=== PATIENT | female | born 1980 | race Caucasian/White ===

== ENCOUNTER 2020-02-28 09:23 | Outpatient (REF) | payer OTHER, SELFPAY | END 2020-02-28 09:24 | disposition home or self-care (01) | LOC: HO.MDS 09:23 | PROVIDERS: PCP Internal Medicine; Visit Provider Internal Medicine Medical Oncology | DX: D50.9 Iron deficiency anemia, unspecified (principal) | CPT/HCPCS: 96365; J2916 ==

== ENCOUNTER 2020-03-03 10:45 | Outpatient (REF) | payer OTHER, SELFPAY | END 2020-03-03 10:46 | disposition home or self-care (01) | LOC: HO.MDS 10:45 | PROVIDERS: Visit Provider Internal Medicine Medical Oncology | DX: D50.9 Iron deficiency anemia, unspecified (principal) | CPT/HCPCS: 96365; J2916 ==

== ENCOUNTER 2020-03-19 10:11 | Outpatient (REF) | payer OTHER, SELFPAY ==
[2020-03-19 09:48] LABS: MANUAL DIFF FLAG NO
[2020-03-19 09:55] LABS: Basophils Percent Auto 0.3 % (0-2); Eosinophils Absolute Auto 0.1 X10*3/uL (0.0-0.4); Eosinophils Percent Auto 1.5 % (0-4); Hematocrit 34.6 % (37-47); Hemoglobin 10.7 g/dl (12.0-16.0); Imm Gran Abs Auto 0.03 X10*3/uL (0.00-0.03); Imm Gran Pct Auto 0.4 % (0.0-0.4); Lymphocytes Percent Auto 25.2 % (20-40); Mean Corpuscular HGB Conc 30.9 g/dl (31.0-35.0); Mean Corpuscular Hemoglobin 25.7 pg (27.0-33.0); Mean Platelet Volume 9.8 fL (9.4-12.3); Monocytes Absolute Auto 0.5 X10*3/uL (0.1-1.2); Monocytes Percent Auto 6.2 % (2-11); Neutrophils Absolute Auto 5.3 X10*3/uL (2.0-8.3); Neutrophils Percent Auto 66.4 % (45-73); Platelet Count 315 X10*3/uL (160-400); Red Blood Count 4.17 X10*6/uL (4.20-5.50); Red Cell Distribution Width 18.8 % (11.0-16.0); White Blood Count 7.9 X10*3/uL (4.8-10.8)
== END 2020-03-19 10:12 | disposition home or self-care (01) ==
LOC: HO.MDS 10:11
PROVIDERS: PCP Internal Medicine; Visit Provider Internal Medicine Medical Oncology
DX: D50.9 Iron deficiency anemia, unspecified (principal)
CPT/HCPCS: 36415; 85025; 96365; J2916

== ENCOUNTER 2020-03-23 | Outpatient (REF) | payer OTHER, SELFPAY | END 2020-03-23 00:01 | disposition home or self-care (01) | LOC: HO.LNP | PROVIDERS: Visit Provider Obstetrics & Gynecology | DX: N92.0 Excessive and frequent menstruation with regular cycle (principal) | CPT/HCPCS: 88305 ==

== ENCOUNTER → 2020-03-23 10:16 | Outpatient (BNVA) | payer OTHER, SELFPAY | PROVIDERS: PCP Internal Medicine; Referring Provider Internal Medicine; Visit Provider Obstetrics & Gynecology | DX: N92.0 Excessive and frequent menstruation with regular cycle (principal) | CPT/HCPCS: 58100; 81025 ==

== ENCOUNTER 2020-03-27 11:22 | Outpatient (REF) | payer OTHER, SELFPAY | END 2020-03-27 11:23 | disposition home or self-care (01) | LOC: HO.MDS 11:22 | PROVIDERS: Visit Provider Internal Medicine Medical Oncology | DX: D50.9 Iron deficiency anemia, unspecified (principal) | CPT/HCPCS: 96365; J2916 ==

== ENCOUNTER → 2020-04-01 15:39 | Outpatient (BNVA) | payer OTHER, SELFPAY | PROVIDERS: PCP Internal Medicine; Referring Provider Internal Medicine; Visit Provider Nurse Practitioner | DX: K59.04 Chronic idiopathic constipation (principal); D64.9 Anemia, unspecified; R10.13 Epigastric pain; K21.9 Gastro-esophageal reflux disease without esophagitis; Z79.899 Other long term (current) drug therapy | CPT/HCPCS: 99212 ==

== ENCOUNTER → 2020-04-13 11:41 | Outpatient (BNVA) | payer OTHER, SELFPAY | PROVIDERS: PCP Internal Medicine; Visit Provider Obstetrics & Gynecology | DX: Z76.89 Persons encountering health services in other specified circumstances (principal) ==

== ENCOUNTER → 2020-05-06 13:18 | Outpatient (BNVA) | payer OTHER, SELFPAY | PROVIDERS: PCP Internal Medicine; Referring Provider Internal Medicine; Visit Provider Nurse Practitioner | DX: Z76.89 Persons encountering health services in other specified circumstances (principal) ==

== ENCOUNTER → 2020-07-06 10:05 | Outpatient (BNVA) | payer OTHER, SELFPAY | PROVIDERS: PCP Internal Medicine; Visit Provider Nurse Practitioner ==

== ENCOUNTER → 2020-07-27 08:45 | Outpatient (BNVA) | payer OTHER, SELFPAY | PROVIDERS: PCP Internal Medicine; Visit Provider Nurse Practitioner ==

== ENCOUNTER → 2020-08-05 08:12 | Outpatient (REF) | payer OTHER, SELFPAY ==
--- NOTE | ~2020-08-05 | NM_ITS ---
EXAMINATION: RADIONUCLIDE SOLID FOOD GASTRIC EMPTYING 4-HOUR STUDY CLINICAL INFORMATION: Epigastric pain. COMPARISON: No previous gastric emptying study is available for comparison. TECHNIQUE: A standard meal consisting of 4 oz of Egg Beaters brand tagged with 1 mCi Tc-99m Sulfur Colloid, 8 oz water and 2 slices of toast with jelly was administered orally to the patient. Images were obtained using a dual head gamma camera in the anterior and posterior projections over of the stomach immediately post ingestion and at hourly intervals up to 3 hours post ingestion. Images were not obtained at 4 hours due to the minimal retention at 3 hours. The anterior and posterior counts at each time interval were averaged using the geometric mean and expressed as percentage of the immediate post ingestion counts. FINDINGS: There is good visualization of activity in the stomach immediately post ingestion. As the study progresses, there is good clearance of activity from the stomach and visualization of progressively increasing small bowel activity. By the end of the study, there is almost no retention noted in the stomach. Retention in the stomach at each time interval was: 1 hour 51% (normal 37%-90%) 2 hours 11% (normal 30%-60%) 3 hours 3% 4 hours (Not Obtained) (normal 0%-10%) NM/NM gastric emptying study IMPRESSION: Normal solid food gastric emptying study.
== END ==
LOC: HO.NUCMED 08:12
PROVIDERS: PCP Internal Medicine; Visit Provider Nurse Practitioner
DX: R10.13 Epigastric pain (principal); R68.81 Early satiety
CPT/HCPCS: 78264; A9541

== ENCOUNTER → 2020-08-06 08:19 | Outpatient (BNV) | payer OTHER, SELFPAY | PROVIDERS: PCP Internal Medicine; Visit Provider Internal Medicine Medical Oncology | DX: D50.9 Iron deficiency anemia, unspecified (principal) | CPT/HCPCS: 99213; 99214 ==

== ENCOUNTER 2020-08-06 09:22 | Outpatient (REF) | payer OTHER, SELFPAY ==
[2020-08-06 12:46] LABS: Iron 27 mcg/dL (30-160); Percent Iron Saturation 8 % (15-50); Total Iron Binding Capacity 320 mcg/dL (228-428); Unsaturated Iron Binding 293 ug/dL
== END 2020-08-06 09:23 | disposition home or self-care (01) ==
LOC: HO.LAB 09:22
PROVIDERS: PCP Internal Medicine; Visit Provider Internal Medicine
DX: D64.9 Anemia, unspecified (principal)
CPT/HCPCS: 36415; 83540

== ENCOUNTER → 2020-08-24 14:53 | Outpatient (BNVA) | payer OTHER, SELFPAY | PROVIDERS: PCP Internal Medicine; Visit Provider Nurse Practitioner ==

== ENCOUNTER → 2020-12-29 13:07 | Outpatient (BNVA) | payer OTHER, SELFPAY | PROVIDERS: PCP Internal Medicine; Visit Provider Nurse Practitioner ==

== ENCOUNTER 2021-02-23 07:50 | Outpatient (REF) | payer OTHER, SELFPAY ==
[2021-02-23 08:43] LABS: Basophils Percent Auto 0.3 % (0-2); Eosinophils Absolute Auto 0.1 X10*3/uL (0.0-0.4); Eosinophils Percent Auto 1.2 % (0-4); Hematocrit 34.6 % (37-47); Hemoglobin 10.5 g/dl (12.0-16.0); Imm Gran Abs Auto 0.04 X10*3/uL (0.00-0.03); Imm Gran Pct Auto 0.4 % (0.0-0.4); Lymphocytes Absolute Auto 2.4 X10*3/uL (1.2-4.9); Lymphocytes Percent Auto 25.6 % (20-40); MANUAL DIFF FLAG NO; Mean Corpuscular HGB Conc 30.3 g/dl (31.0-35.0); Mean Corpuscular Hemoglobin 24.5 pg (27.0-33.0); Mean Corpuscular Volume 80.8 fL (80-98); Monocytes Absolute Auto 0.6 X10*3/uL (0.1-1.2); Monocytes Percent Auto 6.5 % (2-11); Neutrophils Absolute Auto 6.3 X10*3/uL (2.0-8.3); Platelet Count 404 X10*3/uL (160-400); Red Blood Count 4.28 X10*6/uL (4.20-5.50); Red Cell Distribution Width 15.7 % (11.0-16.0); White Blood Count 9.5 X10*3/uL (4.8-10.8)
[2021-02-23 08:59] LABS: Alanine Aminotransferase 9 U/L (0-31); Albumin Level 4.2 g/dL (3.5-5.0); Alkaline Phosphatase 92 U/L (39-117); Anion Gap 13 (12-20); Aspartate Amino Transferase 14 U/L (5-31); Bilirubin Total 0.4 mg/dL (0.0-1.0); Blood Urea Nitrogen 13 mg/dL (9-16); Calcium 9.3 mg/dL (8.4-10.2); Carbon Dioxide 24 mmol/L (22-29); Chloride 107 mmol/L (96-108); Estimated Glomerular Filt Rate > 60; Glucose Random 90 mg/dL (60-115); Potassium 4.5 mmol/L (3.3-5.1); Sodium 139 mmol/L (135-145); Total Protein 7.8 g/dL (6.5-8.0)
[2021-02-23 09:18] LABS: Ferritin 9 ng/mL (10-122)
== END 2021-02-23 07:51 | disposition home or self-care (01) ==
LOC: HO.LAB 07:50
PROVIDERS: Internal Medicine Medical Oncology; PCP Internal Medicine; Visit Provider Internal Medicine
DX: D64.9 Anemia, unspecified (principal)
CPT/HCPCS: 36415; 80053; 82728; 85025

== ENCOUNTER 2021-03-02 07:38 | Outpatient (REF) | payer OTHER, SELFPAY | END 2021-03-02 07:39 | disposition home or self-care (01) | LOC: HO.MDS 07:38 | PROVIDERS: PCP Internal Medicine; Visit Provider Internal Medicine Medical Oncology | DX: D50.9 Iron deficiency anemia, unspecified (principal) | CPT/HCPCS: 96365; J2916 ==

== ENCOUNTER 2021-03-09 08:52 | Outpatient (REF) | payer OTHER, SELFPAY | END 2021-03-09 08:53 | disposition home or self-care (01) | LOC: HO.MDS 08:52 | PROVIDERS: Visit Provider Internal Medicine Medical Oncology | DX: D50.9 Iron deficiency anemia, unspecified (principal) | CPT/HCPCS: 96365; J2916 ==

== ENCOUNTER 2021-03-16 09:01 | Outpatient (REF) | payer OTHER, SELFPAY | END 2021-03-16 09:02 | disposition home or self-care (01) | LOC: HO.MDS 09:01 | PROVIDERS: Visit Provider Internal Medicine Medical Oncology | DX: D50.9 Iron deficiency anemia, unspecified (principal); G80.9 Cerebral palsy, unspecified | CPT/HCPCS: 96365; J2916 ==

== ENCOUNTER 2021-03-23 09:09 | Outpatient (REF) | payer OTHER, SELFPAY ==
[2021-03-23 09:44] LABS: MANUAL DIFF FLAG NO
[2021-03-23 09:46] LABS: Basophils Percent Auto 0.3 % (0-2); Eosinophils Absolute Auto 0.1 X10*3/uL (0.0-0.4); Eosinophils Percent Auto 1.3 % (0-4); Hematocrit 36.2 % (37-47); Imm Gran Abs Auto 0.02 X10*3/uL (0.00-0.03); Imm Gran Pct Auto 0.2 % (0.0-0.4); Lymphocytes Absolute Auto 2.2 X10*3/uL (1.2-4.9); Lymphocytes Percent Auto 25.4 % (20-40); Mean Corpuscular HGB Conc 30.4 g/dl (31.0-35.0); Mean Corpuscular Volume 82.3 fL (80-98); Mean Platelet Volume 10.7 fL (9.4-12.3); Monocytes Absolute Auto 0.5 X10*3/uL (0.1-1.2); Monocytes Percent Auto 6.1 % (2-11); Neutrophils Absolute Auto 5.8 X10*3/uL (2.0-8.3); Neutrophils Percent Auto 66.7 % (45-73); Platelet Count 342 X10*3/uL (160-400); White Blood Count 8.7 X10*3/uL (4.8-10.8)
== END 2021-03-23 09:10 | disposition home or self-care (01) ==
LOC: HO.MDS 09:09
PROVIDERS: Visit Provider Internal Medicine Medical Oncology
DX: D50.9 Iron deficiency anemia, unspecified (principal)
CPT/HCPCS: 36415; 85025; 96365; J2916

== ENCOUNTER → 2021-04-09 15:39 | Outpatient (BNVA) | payer OTHER, SELFPAY | PROVIDERS: PCP Internal Medicine; Referring Provider Internal Medicine; Visit Provider Nurse Practitioner ==

== ENCOUNTER 2021-05-25 10:27 | Outpatient (REF) | payer OTHER, SELFPAY ==
--- NOTE | ~2021-05-25 | US_ITS ---
EXAMINATION: US ABDOMEN COMPLETE CLINICAL INFORMATION: Epigastric pain. COMPARISON: Ultrasound abdomen 01/22/2008. TECHNIQUE: Real-time imaging of the abdominal viscera. FINDINGS: PANCREAS: Partially visualized within normal limits ABDOMINAL AORTA: The proximal, mid, and distal segments are normal in caliber. INFERIOR VENA CAVA: Visualized portions are normal. LIVER: The liver is normal in size. The liver contour is normal. No focal hepatic lesion. There is no intrahepatic biliary duct dilatation seen. GALLBLADDER: Gallstones are noted. Multiple. The gallbladder is physiologically distended. Multiple mobile gallstones are present. No evidence of gallbladder wall thickening or pericholecystic fluid. COMMON BILE DUCT: Normal in caliber measuring 0.2 cm in diameter. RIGHT KIDNEY: Normal. No hydronephrosis. No renal calculi or focal parenchymal lesions. The kidney measures 10.5 cm in maximum dimension. LEFT KIDNEY: Normal. No hydronephrosis. No renal calculi or focal parenchymal lesions. The kidney measures 9.3 cm in maximum dimension. SPLEEN: Normal. The spleen measures 10.8 cm in maximum dimension. FREE FLUID: None. US/US abdomen complete IMPRESSION: Cholelithiasis but no evidence for cholecystitis here. There is no free fluid.
== END 2021-05-25 10:28 | disposition home or self-care (01) ==
LOC: HO.US 10:27
PROVIDERS: PCP Internal Medicine; Visit Provider Nurse Practitioner
DX: R10.13 Epigastric pain (principal); K80.20 Calculus of gallbladder without cholecystitis without obstruction
CPT/HCPCS: 76700

== ENCOUNTER → 2021-06-03 08:12 | Outpatient (BNVA) | payer OTHER, SELFPAY | PROVIDERS: PCP Internal Medicine; Referring Provider Internal Medicine; Visit Provider Nurse Practitioner | DX: K80.20 Calculus of gallbladder without cholecystitis without obstruction (principal) | CPT/HCPCS: 99212 ==

== ENCOUNTER → 2021-06-24 08:44 | Outpatient (BNVA) | payer OTHER, SELFPAY | PROVIDERS: PCP Internal Medicine; Referring Provider Internal Medicine; Visit Provider Surgery | DX: K80.20 Calculus of gallbladder without cholecystitis without obstruction (principal); Z80.0 Family history of malignant neoplasm of digestive organs | CPT/HCPCS: 99202 ==

== ENCOUNTER → 2021-07-29 08:19 | Outpatient (BNVA) | payer OTHER, SELFPAY | PROVIDERS: PCP Internal Medicine; Visit Provider Nurse Practitioner | DX: K80.20 Calculus of gallbladder without cholecystitis without obstruction (principal); K59.04 Chronic idiopathic constipation; K21.9 Gastro-esophageal reflux disease without esophagitis; G80.2 Spastic hemiplegic cerebral palsy; D12.6 Benign neoplasm of colon, unspecified | CPT/HCPCS: 99212 ==

== ENCOUNTER 2021-10-11 09:02 | Outpatient (REF) | payer OTHER, SELFPAY ==
--- NOTE | ~2021-10-11 | MM_ITS ---
EXAMINATION: MM DIAGNOSTIC DIGITAL BREAST TOMOSYNTHESIS, BILATERAL CLINICAL INFORMATION: 41-year-old with chronic pain lateral right breast. No discharge or palpable fullness. No prior breast imaging. Family history breast cancer, maternal aunt. The lifetime risk of breast cancer based on the Tyrer-Cuzick Model is 14%. COMPARISON: None (current study represents initial baseline exam). TECHNIQUE: Digital breast tomosynthesis is performed in both the craniocaudal and mediolateral oblique views along with computer-aided detection (CAD). Synthesized 2D images are generated from the tomosynthesis. FINDINGS: There are scattered areas of fibroglandular density (ACR BI-RADS breast composition Category b). There is scattered benign-appearing nodularity in each breast with smooth partly obscured margins possibly cysts or fibroadenomatous. There is no architectural abnormality or abnormal calcifications. The axilla and skin contours are unremarkable. No skin thickening or coarsening of the Chu's ligaments. Left breast has 3 dominant nodules as follows: -Posterior upper outer quadrant macrolobulated 1.0 x 1.9 cm. -Mid upper outer quadrant, 1.0 x 1.4 cm. -Posterior 6:00 position 0.8 x 1.4 cm. Right breast has 2 dominant nodules as follows: -Central mid breast 0.6 x 1.1 cm. -Mid upper outer quadrant 0.4 x 0.6 cm. Bilateral targeted breast ultrasound is pending, scheduled on another day. MM/MM tomosynthesis diagnostic BI IMPRESSION: -Bilateral benign-appearing dominant nodularity. -No inflammatory changes. ASSESSMENT: BI-RADS 0: Incomplete - Need Additional Imaging Evaluation RECOMMENDATION: Targeted bilateral ultrasound for bilateral nodules and additional evaluation right pain. This patient's information was entered into a reminder system with a target due date for their next breast imaging.
== END 2021-10-11 09:03 | disposition home or self-care (01) ==
LOC: HO.MAMMO 09:02
PROVIDERS: PCP Internal Medicine; Visit Provider Internal Medicine
DX: N64.4 Mastodynia (principal)
CPT/HCPCS: 77062; 77066

== ENCOUNTER 2021-10-19 10:42 | Outpatient (REF) | payer OTHER, SELFPAY ==
--- NOTE | ~2021-10-19 | US_ITS ---
EXAMINATION: US DIAGNOSTIC ULTRASOUND BREAST, RIGHT US DIAGNOSTIC ULTRASOUND BREAST, LEFT CLINICAL INFORMATION: Recall from baseline mammography for bilateral benign-appearing nodularity. Family history breast cancer, maternal aunt. TC score 14%. COMPARISON: Baseline mammography 10/11/2021. TECHNIQUE: Ultrasound of each breast is performed using grayscale imaging and color Doppler without and with harmonics. Imaging is targeted to the areas of nodularity noted on recent imaging including left breast 12:00 through 6:00 position and right breast upper outer quadrant. Patient is scanned in wheelchair with semi recumbent positioning FINDINGS: Right: There is nodularity consistent with the baseline mammography. No architectural abnormality. There is an oval mildly hypoechoic circumscribed nodule 11:00 position 6 cm from nipple corresponding to the nodule central right breast measuring approximately 0.9 x 0.4 cm. No associated color flow. There are grouped benign-appearing microcysts upper outer right breast 15 cm from nipple composition in area just under 1 cm. Left: There is scattered nodularity corresponding to the findings on baseline mammography. No architectural abnormality. -2:00 position 12 cm from nipple grouped hypoechoic nodularity measuring approximately 1.2 x 0.9 cm. -2:00 position 7 cm from nipple circumscribed homogeneous mildly hypoechoic nodule measuring approximately 1.7 x 0.8 cm. -3:00 position 8 cm from nipple circumscribed nodule measuring approximately 1.3 x 0.7 cm. -5:00 position 9 cm from nipple circumscribed mildly hypoechoic nodule measuring 1.2 x 0.6 cm. Management: Results are discussed with the patient at time of visit. Multiple smooth bilateral nodularity are probably benign. Chronicity is unknown. The solid nodules are statistically most likely fibroadenomas. Management plan is for short interval six-month follow-up bilateral mammography with targeted ultrasound as warranted. US/US breast LT limited IMPRESSION: -Bilateral scattered smooth nodularity, most statistically likely fibroadenomas corresponding to baseline mammography. -No focal architectural abnormality. ASSESSMENT: BI-RADS 3: Probably Benign RECOMMENDATION: -Diagnostic bilateral mammography in 6 months. This patient's information was entered into a reminder system with a target due date for their next mammogram.
== END 2021-10-19 10:43 | disposition home or self-care (01) ==
LOC: HO.MAMMO 10:42
PROVIDERS: Visit Provider Internal Medicine
DX: N64.4 Mastodynia (principal)
CPT/HCPCS: 76642

== ENCOUNTER 2021-10-21 08:14 | Day surgery (SDC) | payer OTHER, SELFPAY ==
--- NOTE | 2021-10-20 10:48 | HO.ANESPROP2 ---
Documented by User: Coral Gutierrez NP 10/20/21 10:50 HPI - Anesthesia Eval Consult details Narrative: 41yo F for Upper Endoscopy and Colonoscopy Cerebral palsy, wheelchair bound, self cath PMFSH Active Problems Active Problems: All Active Problems (Updated 10/15/21 @ 11:42 by María Hoyos RN) GERD (gastroesophageal reflux disease) (Acute) Menorrhagia (Acute) Chronic idiopathic constipation (Acute) Anemia (Acute) Epigastric pain (Acute) Early satiety (Acute) Iron deficiency anemia (Acute) Tubular adenoma of colon (Acute) Gastritis (Acute) Nausea (Acute) Gallstones (Acute) Abnormal mammogram (Acute) Wheelchair bound (Acute) Family history of pancreatic cancer (Acute) Leg edema (Acute) Breast pain, right (Acute) Neurogenic bladder (Acute) Cerebral palsy (Acute) Past Medical History Medical History Breast pain, right Cerebral palsy COVID-19 vaccine series completed Family history of pancreatic cancer Leg edema Neurogenic bladder 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 urinary bladder Transverse myelitis Wheelchair bound Family History Family History Father HTN (hypertension) Diabetes type 2, controlled Mother Pancreatic cancer Surgical History Surgical History H/O major orthopedic surgery History of bilateral tubal ligation History of Hx of colonoscopy Hx of endoscopy Social History Social History Household Members: Children Household Members Other:: minor children Housing: Apartment Are you a primary personal care attendant to a significant other at home: Yes Do you presently have visiting nurse or other home services: Yes ([employer] services) Alcohol intake: never Patient Tobacco Use Status: Never used Tobacco e-Cigarette/Vaping Use: Never Used Second Hand Smoke Exposure: No Use of substances other than those prescribed or required for medical reasons: No Are you DNR?: No Advance Directives: Yes Advance Directives Information Provided: Yes Advance Directives on File: Yes Advance Directives Date on File: 02/28/20 Recently lost weight without trying: No Eating poorly because of decreased appetite: No Nutrition Risks: No Nutritional Risk Patient : No service: No Current occupational status: disabled Sexual orientation: Straight/Heterosexual Gender identity: Female Cognitive needs: No Hearing needs: No Vision needs: No Meds Allergies Allergy/AdvReac Type Severity Reaction Status Date / Time Influenza Virus Vaccines Allergy Severe Anaphylaxis Verified 10/15/21 11:43 latex [LATEX] Allergy Severe ANAPHYLAXIS Verified 10/13/21 09:46 Sulfa (Sulfonamide Allergy Severe Anaphylaxis Verified 10/15/21 11:43 Antibiotics) [SULFA (SULFONAMIDE ANTIBIOTICS)] Home Medications Medication Instructions Recorded Confirmed Last Taken Type oxybutynin chloride 10 mg 10 mg PO Q12H 03/23/20 10/15/21 Unknown History tablet,extended release 24 hr epinephrine 0.3 mg/0.3 mL 0.3 mg IM Q10M PRN 02/23/21 10/15/21 Unknown History injection, auto-injector Exam Exam Date and Time: October 20, 2021 1048 Height,Weight and Vital Signs: Height 5 ft 3 in Pertinent Lab Results Pertinent Lab Results: Laboratory Tests 10/13/21 10/13/21 10:00 10:00 WBC 9.3 Hgb 10.6 L Hct 35.0 L Plt Count 384 Sodium 137 Potassium 3.9 Chloride 108 Carbon Dioxide 21 L BUN 16 Creatinine 0.60 Assessment and Plan Assessment Anesthesia Assessment: Chart Reviewed Documented by User: Angelique Luu MD 10/21/21 08:45 [facility] Past Medical History Medical History Breast pain, right Cerebral palsy COVID-19 vaccine series completed Family history of pancreatic cancer Leg edema Neurogenic bladder 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 urinary bladder Transverse myelitis Wheelchair bound Family History Family History Father HTN (hypertension) Diabetes type 2, controlled Mother Pancreatic cancer Family history of problems with anesthesia: No Surgical History Surgical History H/O major orthopedic surgery History of bilateral tubal ligation History of Hx of colonoscopy Hx of endoscopy History of Problems with Anesthesia: No Social History Social History Household Members: Children Household Members Other:: minor children Housing: Apartment Are you a primary personal care attendant to a significant other at home: Yes Do you presently have visiting nurse or other home services: Yes ([employer] services) Alcohol intake: never Patient Tobacco Use Status: Never used Tobacco e-Cigarette/Vaping Use: Never Used Second Hand Smoke Exposure: No Use of substances other than those prescribed or required for medical reasons: No Are you DNR?: No Advance Directives: Yes Advance Directives Information Provided: Yes Advance Directives on File: Yes Advance Directives Date on File: 02/28/20 Recently lost weight without trying: No Eating poorly because of decreased appetite: No Nutrition Risks: No Nutritional Risk Patient : No service: No Current occupational status: disabled Sexual orientation: Straight/Heterosexual Gender identity: Female Cognitive needs: No Hearing needs: No Vision needs: No Meds Allergies Allergy/AdvReac Type Severity Reaction Status Date / Time Influenza Virus Vaccines Allergy Severe Anaphylaxis Verified 10/15/21 11:43 latex [LATEX] Allergy Severe ANAPHYLAXIS Verified 10/13/21 09:46 Sulfa (Sulfonamide Allergy Severe Anaphylaxis Verified 10/15/21 11:43 Antibiotics) [SULFA (SULFONAMIDE ANTIBIOTICS)] Home Medications Medication Instructions Recorded Confirmed Last Taken Type oxybutynin chloride 10 mg 10 mg PO Q12H 03/23/20 10/15/21 Unknown History tablet,extended release 24 hr epinephrine 0.3 mg/0.3 mL 0.3 mg IM Q10M PRN 02/23/21 10/15/21 Unknown History injection, auto-injector Exam Height,Weight and Vital Signs: Height 5 ft 3 in Weight 58.967 kg Vital Signs Temp Pulse Resp BP Pulse Ox 10/21/21 08:17 97.5 F 106 H 18 136/71 97 Airway Mallampati Class: II TM Dist: >3cm Neck ROM: Full Loose/Missing/Broken Teeth: No Heart: RRR Lungs: CTAB Assessment and Plan Assessment Anesthesia Assessment: Anesthesia Plan Discussed Final Anesthetic Review Family History of Problems with Anesthesia: No History of Problems with Anesthesia: No NPO: Yes ASA Class: III Final Preanesthetic Review: No Changes in Pt Med Stat, Meds/Allgs Chart Reviewed, Consent Obtained/Reviewed and Anes Risks/Benef Reviewed Patient Risk: Intermediate Procedure Risk: Low Assessment/Block/Sedation in SS: Assess/Block/Sedation-SS Anesthetic Plan Anesthetic Plan: MAC: Disposition: Standard PACU
--- NOTE | 2021-10-21 07:03 | P.HPSUR_ITS ---
Pre-Procedural Eval Section A Date of Service: 10/21/21 Section B Chief Complaint: abdominal pain, anemia Relevant Family History (Specify if Yes): No Relevant Social History: None Present Medications: see Short Stay Collaborative assessment Medical History: Significant History (Breast pain, right Cerebral palsy COVID-19 vaccine series completed Family history of pancreatic cancer Leg edema Neurogenic bladder Self-catheterizes urinary bladder Transverse myelitis Wheelchair bound) History of Previous Operations: Relevant previous surgery/procedure and date(s) (H/O major orthopedic surgery History of bilateral tubal ligation History of C- section Hx of colonoscopy Hx of endoscopy) Allergies: Allergies Allergy/AdvReac Type Severity Reaction Status Date / Time Influenza Virus Vaccines Allergy Severe Anaphylaxis Verified 10/15/21 11:43 latex [LATEX] Allergy Severe ANAPHYLAXIS Verified 10/13/21 09:46 Sulfa (Sulfonamide Allergy Severe Anaphylaxis Verified 10/15/21 11:43 Antibiotics) [SULFA (SULFONAMIDE ANTIBIOTICS)] Review of Systems Sugical H&P ROS: Negative: Constitution, Cardiovascular, Respiratory, Neurological, Psychiatric, Hem-Onc, Allergic/Immunologic, Gastrointestinal, Genitourinary, Musculoskeletal, Integumentary, Endocrine and Eyes/Ears/Nose/Throat Exam Surgical H&P Exam: Normal: HEENT, Normal: Heart, Normal: Lungs, Normal: Extremities, Normal: Abdomen and Normal: Skin and Significant Findings: Neurological (wheelchair bound) Plan Diagnosis/Plan: Unchanged I have reviewed the history and physical and performed a pertinent physical examination on my patient. No changes have occurred unless specified.
[2021-10-21 08:17] VITALS: BP 136/71; PULSE 106; RESP 18; TEMP 36.4; O2SAT 97; BMI 23.0
[2021-10-21] MEDS: Lactated Ringers 1,000 ML 100 ML IVCONT (08:51)
--- NOTE | 2021-10-21 09:24 | PM.OP ---
Brief Operative Note Date of Service: 10/21/21 Pre-op diagnosis: abdominal pain, anemia Post-op diagnosis: same Procedure: see op note Surgeon: Trinh Saunders MD Anesthesia: MAC Was an Workforce Planner used for this Procedure?: No Estimated blood loss (mL): 0 Condition: stable Disposition: PACU
--- NOTE | 2021-10-21 09:25 | P.OP_ITS ---
Operative Note Operative Note Date of Service: 10/21/21 Narrative: Operative Information Procedure Description: EGD, Colonoscopy Indication: abdominal pain, anemia Anesthesia: MAC FLEXIBLE TRANSORAL UPPER GASTROINTESTINAL ENDOSCOPY AND COLONOSCOPY PROCEDURE NOTE UPPER ENDOSCOPY Consent: Indications for the procedure and potential complications of bleeding, perforation, reaction to medications and missed diagnosis were discussed with the patient and informed consent was obtained. Instrument: Olympus GIF H 190 J mid size upper endoscope Monitoring: Vital signs and clinical assessment, continuous EKG monitoring, Pulse oximetry, Carbon Dioxide monitoring and blood pressure monitoring were done throughout the procedure. Procedure: The patient was placed in the left lateral decubitis position and pre-procedure medications were administered and a bite block was placed. The endoscope was inserted into the mouth and advanced under direct vision to the third part of duodenum. A careful inspection was made as the upper endoscope was withdrawn including a retroflexed examination of the proximal stomach; Findings and interventions are described below. Findings: Larynx:normal Esophagus: GE junction at 37 cm, diaphragm hiatus at 37 cm, streaky erosions, edema, and inflammation consistent with LA grade C erosive esophagitis, bx taken --schatzki ring noted Stomach: Normal mucosa. Biopsies were obtained. Grade 2 flap valve on retroflexed examination of the cardia. Duodenum: Bulbar duodenitis, bx taken Intervention: Biopsies as noted above COLONOSCOPY Instrument: Olympus variable stiffness pediatric scope 190L Colonoscopy Monitoring: Vital signs and clinical assessment, continuous EKG monitoring, Pulse oximetry, Carbon Dioxide monitoring and blood pressure monitoring were done throughout the procedure. Colon withdrawal time was 12 minutes. Procedure: The patient was placed in the left lateral decubitis position and pre-procedure medications were administered. After a digital rectal examination of the ano-rectum, the video colonoscope was inserted into the rectum and advanced through the colon to the cecum/TI. The colonoscope was slowly withdrawn in a retrograde panoramic fashion and the colon mucosa was carefully examined including a retroflexed view of the rectum. Findings and interventions are described below. Procedure Difficulty:easy Findings: Terminal Ileum-normal, bx taken Random colon bx taken Cecum:normal Ascending Colon: normal, few small diverticula noted Transverse Colon -normal Descending Colon:normal Sigmoid Colon: moderate diverticulosis with variable sized tics Rectum: Retroflexion with small internal hemorrhoids, grade I, few erosions noted in proximal rectum bx taken, x 1 sessile polyp lesion 8 mm removed with cold snare Anorectum - normal Colon preparation: Winkelman Bowel Preparation Scale Right colon; 3 Transverse colon: 2 Left colon; 3 (0 = Unprepared colon segment with mucosa not seen due to solid stool that cannot be cleared. 1 = Portion of mucosa of the colon segment seen, but other areas of the colon segment not well seen due to staining, residual stool and/or opaque liquid. 2 = Minor amount of residual staining, small fragments of stool and/or opaque liquid, but mucosa of colon segment seen well. 3 = Entire mucosa of colon segment seen well with no residual staining, small fragments of stool or opaque liquid) Impression and Post Procedure Diagnosis: Endoscopy Findings: erosive esophagitis (maybe causing anemia to some extent) schatzki ring duodenitis Colonoscopy Findings: polyp internal hemorrhoids diverticular disease Plan: Await Pathology results Repeat Colonoscopy in 5-7 years if adenomatus polyp, 10 yrs if hyperplastic or earlier if clinically indicated High fiber diet leaflet avoid straining at stool, epsom salts and sitz bath, anusol supps or cream check nsaid history, naprosyn listed on chart also compliance with PPI, may need pepcid at night or carafate if h pylori pos then treat reflux precautions Above findings were reviewed with the patient and relevant handouts were provided if indicated.
[2021-10-21 10:17] VITALS: BP 120/76; PULSE 97; RESP 16; TEMP 36.4; O2SAT 98
[2021-10-21 10:32] VITALS: BP 133/77; PULSE 95; RESP 16; TEMP 36.4; O2SAT 100
== END 2021-10-21 10:57 | disposition home or self-care (01) ==
PROVIDERS: PCP Internal Medicine; Visit Provider Internal Medicine Gastroenterology
PROC: (CPT 45385; principal; 2021-10-21 09:20)
DX: R10.9 Unspecified abdominal pain (principal); D64.9 Anemia, unspecified; Z86.010 Personal history of colon polyps; K62.1 Rectal polyp; K57.30 Diverticulosis of large intestine without perforation or abscess without bleeding; K64.0 First degree hemorrhoids; K59.04 Chronic idiopathic constipation; K21.9 Gastro-esophageal reflux disease without esophagitis; K22.2 Esophageal obstruction; K80.20 Calculus of gallbladder without cholecystitis without obstruction; K20.80 Other esophagitis without bleeding; K29.80 Duodenitis without bleeding; K44.9 Diaphragmatic hernia without obstruction or gangrene; N31.9 Neuromuscular dysfunction of bladder, unspecified; Z80.0 Family history of malignant neoplasm of digestive organs; R60.0 Localized edema; G80.2 Spastic hemiplegic cerebral palsy; G37.3 Acute transverse myelitis in demyelinating disease of central nervous system; Z79.899 Other long term (current) drug therapy; Z88.2 Allergy status to sulfonamides; Z91.040 Latex allergy status
CPT/HCPCS: 45385; 45380; 43239; 88305; 88312; 88342; J2250

== ENCOUNTER 2021-10-22 09:19 | Outpatient (REF) | payer OTHER, SELFPAY | END 2021-10-22 09:20 | disposition home or self-care (01) | LOC: HO.MDS 09:19 | PROVIDERS: Visit Provider Internal Medicine Medical Oncology | DX: D50.9 Iron deficiency anemia, unspecified (principal) | CPT/HCPCS: 96365; J2916 ==

== ENCOUNTER 2021-10-29 11:46 | Outpatient (REF) | payer OTHER, SELFPAY | END 2021-10-29 11:47 | disposition home or self-care (01) | LOC: HO.MDS 11:46 | PROVIDERS: Visit Provider Internal Medicine Medical Oncology | DX: D50.9 Iron deficiency anemia, unspecified (principal) | CPT/HCPCS: 96365; J2916 ==

== ENCOUNTER 2021-11-04 12:16 | Outpatient (REF) | payer OTHER, SELFPAY | END 2021-11-04 12:17 | disposition home or self-care (01) | LOC: HO.MDS 12:16 | PROVIDERS: Visit Provider Internal Medicine Medical Oncology | DX: D50.9 Iron deficiency anemia, unspecified (principal); G80.9 Cerebral palsy, unspecified; K80.20 Calculus of gallbladder without cholecystitis without obstruction; K21.9 Gastro-esophageal reflux disease without esophagitis; K59.04 Chronic idiopathic constipation; D12.6 Benign neoplasm of colon, unspecified; Z88.2 Allergy status to sulfonamides; Z88.7 Allergy status to serum and vaccine; Z91.040 Latex allergy status; Z79.899 Other long term (current) drug therapy | CPT/HCPCS: 96365; 99212; J2916 ==

== ENCOUNTER 2021-11-17 11:00 | Outpatient (REF) | payer OTHER, SELFPAY | END 2021-11-17 11:01 | disposition home or self-care (01) | LOC: HO.MDS 11:00 | PROVIDERS: Visit Provider Internal Medicine Medical Oncology | DX: D50.9 Iron deficiency anemia, unspecified (principal); K80.20 Calculus of gallbladder without cholecystitis without obstruction; G80.8 Other cerebral palsy; G37.3 Acute transverse myelitis in demyelinating disease of central nervous system; Z91.040 Latex allergy status; Z80.0 Family history of malignant neoplasm of digestive organs; Z88.2 Allergy status to sulfonamides; Z88.7 Allergy status to serum and vaccine; Z99.3 Dependence on wheelchair; Z79.899 Other long term (current) drug therapy | CPT/HCPCS: 96365; 99212; J2916 ==

== ENCOUNTER → 2021-12-29 08:59 | Outpatient (BNVA) | payer OTHER, SELFPAY | PROVIDERS: PCP Internal Medicine; Referring Provider Internal Medicine; Visit Provider Surgery | DX: Z71.2 Person consulting for explanation of examination or test findings (principal); Z80.0 Family history of malignant neoplasm of digestive organs | CPT/HCPCS: 99212 ==

== ENCOUNTER → 2021-12-30 11:59 | Outpatient (BNVA) | payer OTHER, SELFPAY | PROVIDERS: PCP Internal Medicine; Visit Provider Nurse Practitioner | DX: K30 Functional dyspepsia (principal); K22.10 Ulcer of esophagus without bleeding; K21.9 Gastro-esophageal reflux disease without esophagitis; K59.04 Chronic idiopathic constipation | CPT/HCPCS: 99212 ==

== ENCOUNTER → 2022-01-27 08:43 | Outpatient (BNVA) | payer OTHER, SELFPAY | PROVIDERS: PCP Internal Medicine; Visit Provider Nurse Practitioner | DX: K22.10 Ulcer of esophagus without bleeding (principal); K21.9 Gastro-esophageal reflux disease without esophagitis; K59.04 Chronic idiopathic constipation; K30 Functional dyspepsia; G80.8 Other cerebral palsy; Z79.899 Other long term (current) drug therapy | CPT/HCPCS: 99212 ==

== ENCOUNTER → 2022-04-20 10:38 | Outpatient (BNVA) | payer OTHER, SELFPAY | PROVIDERS: PCP Internal Medicine; Referring Provider Internal Medicine; Visit Provider Nurse Practitioner | DX: K21.9 Gastro-esophageal reflux disease without esophagitis (principal); K22.10 Ulcer of esophagus without bleeding; K30 Functional dyspepsia; K59.04 Chronic idiopathic constipation; Z79.899 Other long term (current) drug therapy | CPT/HCPCS: 99212 ==

== ENCOUNTER → 2022-06-16 10:18 | Outpatient (BNVA) | payer OTHER, SELFPAY | PROVIDERS: PCP Internal Medicine; Visit Provider Surgery | DX: K80.20 Calculus of gallbladder without cholecystitis without obstruction (principal); G80.2 Spastic hemiplegic cerebral palsy; Z99.3 Dependence on wheelchair | CPT/HCPCS: 99212 ==

== ENCOUNTER → 2022-06-23 09:29 | Outpatient (BNVA) | payer OTHER, SELFPAY | PROVIDERS: PCP Internal Medicine; Referring Provider Internal Medicine; Visit Provider Nurse Practitioner | DX: K80.20 Calculus of gallbladder without cholecystitis without obstruction (principal); K59.04 Chronic idiopathic constipation; K21.9 Gastro-esophageal reflux disease without esophagitis; K22.10 Ulcer of esophagus without bleeding; K30 Functional dyspepsia | CPT/HCPCS: 99212 ==

== ENCOUNTER 2022-06-27 12:13 | Outpatient (REF) | payer OTHER, SELFPAY | END 2022-06-27 12:14 | disposition home or self-care (01) | LOC: HO.MDS 12:13 | PROVIDERS: Visit Provider Internal Medicine Medical Oncology | DX: D50.9 Iron deficiency anemia, unspecified (principal) | CPT/HCPCS: 96365; J1756 ==

== ENCOUNTER 2022-06-28 08:25 | Outpatient (REF) | payer OTHER, SELFPAY ==
--- NOTE | ~2022-06-28 | CT_ITS ---
EXAMINATION: CT ABDOMEN AND PELVIS WITHOUT CONTRAST CLINICAL INFORMATION: Calculus of gallbladder. COMPARISON: Ultrasound abdomen 05/25/2021. TECHNIQUE: Multidetector volumetric imaging was performed from the superior aspect of the liver through the pubic symphysis. Sagittal and coronal reformatted images were obtained on the technologist's workstation. This CT examination was performed using dose optimization techniques as appropriate, variously including the following: *Automated exposure control *Adjustment of mA and/or kV according to patient size (this includes techniques or standardized protocols for targeted exams where dose is matched to indication/reason for exam; i.e. extremities or head) *Use of iterative reconstruction technique DLP: 462 mGy-cm FINDINGS: LUNG BASES: The visualized lung bases are unremarkable. LIVER, GALLBLADDER, AND BILIARY TREE: The liver is normal in size, shape, and attenuation. No focal hepatic lesion or biliary ductal dilatation is present. The gallbladder is unremarkable with no evidence of radiopaque gallstones, gallbladder wall thickening, or obvious pericholecystic inflammatory changes. PANCREAS: Unremarkable. SPLEEN: Unremarkable. ADRENAL GLANDS: Unremarkable. KIDNEYS AND URETERS: The kidneys are normal in size, shape, and attenuation. No hydronephrosis, hydroureter, or calculi are seen. No perinephric stranding. BLADDER: Unremarkable. GASTROINTESTINAL TRACT: There is scattered stool, diverticula and gas seen throughout the colon without distention. The small bowel loops are normal caliber. Appendix is normal caliber. No free air or free fluid is seen. ABDOMINAL WALL: No significant hernia is appreciated. LYMPH NODES: Normal. VASCULAR: Unremarkable. PELVIC VISCERA: Unremarkable. OSSEOUS STRUCTURES: There is a right hip nail and screws from an old, healed right femoral neck fracture. In addition, there is reconstruction of the bilateral pelvic bones and acetabula with screws and nails. There is moderate rotolevoscoliosis of the lumbar spine. No aggressive lytic or sclerotic process is seen. CT/CT abdomen pelvis wo IV con IMPRESSION: 1. No acute intra-abdominal process is seen. 2. No radiopaque urolith or hydroureteronephrosis. No radiopaque gallstone. 3. Scattered colonic diverticulosis without diverticulitis. Fleischner guidelines were followed.
== END 2022-06-28 08:26 | disposition home or self-care (01) ==
LOC: HO.CT 08:25
PROVIDERS: PCP Internal Medicine; Visit Provider Surgery
DX: K80.20 Calculus of gallbladder without cholecystitis without obstruction (principal)
CPT/HCPCS: 74176

== ENCOUNTER 2022-07-04 08:59 | Outpatient (REF) | payer OTHER, SELFPAY | END 2022-07-04 09:00 | disposition home or self-care (01) | LOC: HO.MDS 08:59 | PROVIDERS: Visit Provider Internal Medicine Medical Oncology | DX: D50.9 Iron deficiency anemia, unspecified (principal) | CPT/HCPCS: 96365; J1756 ==

== ENCOUNTER 2022-07-11 09:15 | Outpatient (REF) | payer OTHER, SELFPAY | END 2022-07-11 09:16 | disposition home or self-care (01) | LOC: HO.MDS 09:15 | PROVIDERS: Visit Provider Internal Medicine Medical Oncology | DX: D50.9 Iron deficiency anemia, unspecified (principal) | CPT/HCPCS: 96365; J1756 ==

== ENCOUNTER → 2022-08-18 09:02 | Outpatient (BNVA) | payer OTHER, SELFPAY | PROVIDERS: PCP Internal Medicine; Visit Provider Surgery | DX: R10.11 Right upper quadrant pain (principal); Z87.19 Personal history of other diseases of the digestive system; Z99.3 Dependence on wheelchair | CPT/HCPCS: 99212 ==

== ENCOUNTER 2022-10-04 09:00 | Outpatient (REF) | payer OTHER, SELFPAY ==
--- NOTE | ~2022-10-04 | US_ITS ---
EXAMINATION: US ABDOMEN LIMITED CLINICAL INFORMATION: Personal history of other diseases of the digestive system. Patient had ultrasound in 2020 identifying gallstones but did not opt for surgery. Repeat ultrasound to check status of gallstones. COMPARISON: CT abdomen and pelvis without contrast 06/28/2022. Ultrasound abdomen complete 05/25/2021. TECHNIQUE: Real-time imaging of the right upper quadrant abdominal viscera. FINDINGS: PANCREAS: Not well visualized due to bowel gas. LIVER: Normal. The liver is normal in size. The liver contour is normal. Parenchymal echogenicity is normal. No focal hepatic lesion. There is no intrahepatic biliary duct dilatation seen. GALLBLADDER: The gallbladder is physiologically distended. Multiple mobile gallstones are present. No evidence of gallbladder wall thickening or pericholecystic fluid. COMMON BILE DUCT: Normal in caliber measuring 0.4 cm in diameter. RIGHT KIDNEY: Normal. No hydronephrosis. No renal calculi or focal parenchymal lesions. The kidney measures 9.4 cm in maximum dimension. FREE FLUID: None. US/US abdomen limited IMPRESSION: Gallstones.
== END 2022-10-04 09:01 | disposition home or self-care (01) ==
LOC: HO.US 09:00
PROVIDERS: PCP Internal Medicine; Visit Provider Surgery
DX: Z87.19 Personal history of other diseases of the digestive system (principal)
CPT/HCPCS: 76705

== ENCOUNTER → 2022-10-12 09:48 | Outpatient (BNVA) | payer OTHER, SELFPAY | PROVIDERS: PCP Internal Medicine; Referring Provider Internal Medicine; Visit Provider Surgery | DX: K80.20 Calculus of gallbladder without cholecystitis without obstruction (principal) | CPT/HCPCS: 99212 ==

== ENCOUNTER → 2022-11-30 09:46 | Outpatient (BNVA) | payer OTHER, SELFPAY | PROVIDERS: PCP Internal Medicine; Visit Provider Nurse Practitioner | DX: K80.20 Calculus of gallbladder without cholecystitis without obstruction (principal); K30 Functional dyspepsia; K21.9 Gastro-esophageal reflux disease without esophagitis; K59.04 Chronic idiopathic constipation; G80.8 Other cerebral palsy; Z99.3 Dependence on wheelchair | CPT/HCPCS: 99212 ==

== ENCOUNTER 2023-03-14 08:16 | Outpatient (AMB) | payer OTHER, SELFPAY ==
--- NOTE | 2023-03-14 08:36 | A.OFFPC_ITS ---
Vital Signs 03/14/23 08:38 Height 5 ft 3 in Weight 141 lb BMI 25.0 BP 118/82 Blood Pressure Location Lt brachial Position Sitting Intake Visit Reasons: Annual Exam Intake Note: Patient here for a physical exam Automotive Drivability Technician Required: No Accompanied by: Self / Same As Patient Allergies Influenza Virus Vaccines Allergy (Severe, Verified 03/14/23 08:51) Anaphylaxis latex [LATEX] Allergy (Severe, Verified 03/14/23 08:51) ANAPHYLAXIS Sulfa (Sulfonamide Antibiotics) [SULFA (SULFONAMIDE ANTIBIOTICS)] Allergy (Severe, Verified 03/14/23 08:51) Anaphylaxis Medication List - Last Reconciled 03/14/23 by Micheline Carmichael MD baclofen 10 mg PO Q8H PRN bisacodyl 10 mg (2 x 5 mg) PO BEDTIME commode (bedside commode) As directed [compression stockings As directed] epinephrine 0.3 mg (0.3 mL) IM Q10M PRN 30 days famotidine (Pepcid) 40 mg PO BEDTIME PRN ferrous sulfate 325 mg PO TID lactulose 105 mL PO BEDTIME PRN linaclotide (Linzess) 290 mcg PO QAM qsrdck-bwyyvsan-noufdge 24,000-76,000 -120,000 unit (Creon) 1 cap PO QID metoclopramide HCl (Reglan) 10 mg PO QIDACHS naproxen 500 mg PO Q12H PRN oxybutynin chloride ER 10 mg PO Q12H rabeprazole (AcipHex) 20 mg PO BID [shower chair As directed] simethicone (Anti-Gas Ultra Strength) 180 mg PO TID Tobacco use date assessed: 06/27/22 Dental Screening Dental Screen Date: 03/14/23 Did you have a dental visit in the last 12 months?: Yes Did you have a dental problem in the last 6 months where you did not have access to dental care?: No Was dental information given to patient?: Patient has dentist HPI HPI Comments History of Present Illness Details This is a 42-year-old female with paraplegic is cerebral palsy that comes for her physical exam. She is wheelchair-bound due to cerebral palsy. No chest pain or shortness of breath. Mammogram and Pap smear up-to-date. Had colonoscopy last year due to anemia. [facility] Medical History (Updated 03/14/23 @ 09:04 by Micheline Carmichael MD) History of gallstones Paraplegic cerebral palsy Paraplegic cerebral palsy COVID-19 vaccine series completed Wheelchair bound Family history of pancreatic cancer Leg edema Breast pain, right Neurogenic bladder Cerebral palsy Transverse myelitis Self-catheterizes urinary bladder Surgical History H/O major orthopedic surgery Hx of endoscopy Hx of colonoscopy History of bilateral tubal ligation History of Family History Father HTN (hypertension) Diabetes type 2, controlled Mother Pancreatic cancer Social History Household Members: Children Household Members Other:: minor children Housing: Apartment Are you 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 care 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 health aides 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 to a significant other at home: Yes Do you presently have visiting nurse or other home services: Yes (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 Aneesh Randle, Elina Olmos, Andrew Rizzo and colleagues, with an educational carmen from [employer]. Review of Systems Const All systems reviewed & are unremarkable except as noted in HPI and below Eyes Reports no additional complaints, Denies change in vision and Denies other visual disturbances Card Denies chest pain at rest, Denies chest pain with activity, Denies edema, Denies irregular heart rhythm, Denies claudication, Denies dyspnea, Denies dyspnea on exertion, Denies orthopnea, Denies paroxysmal nocturnal dyspnea and Denies slow heart rate Resp Denies cough, Denies dyspnea and Denies dyspnea on exertion GI Denies abdominal pain, Denies change in bowel habits, Denies excessive flatus, Denies nausea and Denies vomiting Denies urinary incontinence, Denies urinary hesitancy and Denies urinary urgency Musc Denies atrophy, Denies deformity and Denies limited range of motion Skin/Breast Denies bleeding lesions, Denies changing lesions and Denies rash Physical exam (Primary Care) Vital Signs: Last Vital Signs BP 118/82 03/14/23 08:38 BMI result Body Mass Index 25.0 Tobacco/Smoking Status: Tobacco use Status Tobacco use date assessed 06/27/22 03/14/23 08:37 Patient Tobacco Use Status Never used Tobacco 03/14/23 08:37 e-Cigarette/Vaping Use Never Used 03/14/23 08:37 Thrive Assessment: Date of Thrive Assessment Date Thrive assessed 06/27/22 03/14/23 08:37 Const Orientation/consciousness: patient oriented x3 Limitations: wheelchair HENMT Head: Yes normal to inspection, Yes normocephalic and Yes atraumatic Ears: external ears normal Eyes General: appearance normal, both eyes and all related structures Eyelids: Yes eyelids normal Conjunctivae: conjunctivae normal Neck Neck: Yes normal visual inspection and Yes supple Resp Effort & Inspection: normal respiratory effort Auscultation: clear to auscultation bilaterally Cardio Jugular venous distension: no JVD Rate: regular rate Rhythm: regular rhythm Heart sounds: S1 normal heart sound present and S2 normal heart sound present GI Inspection: Yes normal to inspection Palpation (GI): Soft to palpation and nontender Auscultation: normal bowel sounds Skin General skin exam: no rashes or lesions noted Neuro General: patient oriented x3 Motor exam (neuro): Abnormal motor strength present (5/5 upper limbs, 0/5 lower limbs) Extrem Other: Right leg deviated outwards Psych Appearance: grossly normal Office Procedures Flu Questionnaire Does the patient have a severe egg allergy?: No Does the patient have severe life threatening allergies?: No Does the patient have a fever or illness today?: No Has the patient ever had Guillain-Hilmar Syndrome?: No Has the patient ever had any past reaction to a flu shot?: Yes Immunizations flu vacc [id number] 6mos up(PF) 60 mcg(15 mcgx4)/0.5 mL IM syringe Performing Provider: Micheline Carmichael MD [facility] Documented (not given) by: ESTHER Sandoval on 03/14/23 08:42 Reason Not Given: Allergic to Vaccine Component Assessment and Plan Assessment & Plan (1) Physical exam: Code(s): Z00.00 - Encounter for general adult medical examination without abnormal findings Plan: Repeat in a year. (2) Paraplegic cerebral palsy: Code(s): G80.8 - Other cerebral palsy Plan: Continue wheelchair use. Orders: Orders Influenza [id number] Immunization Today Z23 - Encounter for immunization Lipid Panel Today Z00.00 - Encounter for general adult medical examination without abnormal findings Comprehensive [place]. Panel Fast Today Z00.00 - Encounter for general adult medical examination without abnormal findings Coding Level of Care Code Est Pt Prev Care 40-64y(14254) Diagnoses Physical exam Z00.00 Paraplegic cerebral palsy G80.8 Time Spent (min) 33
[2023-03-14 08:38] VITALS: BP 118/82; BMI 25.0
== END 2023-03-14 09:05 | disposition home or self-care (01) ==
PROVIDERS: Visit Provider Internal Medicine
DX: Z00.00 Encounter for general adult medical examination without abnormal findings (principal); G80.8 Other cerebral palsy
CPT/HCPCS: 99396

== ENCOUNTER 2023-07-18 10:27 | Outpatient (AMB) | payer OTHER, SELFPAY ==
--- NOTE | 2023-07-18 10:35 | A.OFFPC_ITS ---
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: No Accompanied by: Self / Same As Patient Allergies Influenza Virus Vaccines Allergy (Severe, Verified 07/18/23 10:48) Anaphylaxis latex [LATEX] Allergy (Severe, Verified 07/18/23 10:48) ANAPHYLAXIS Sulfa (Sulfonamide Antibiotics) [SULFA (SULFONAMIDE ANTIBIOTICS)] Allergy (Severe, Verified 07/18/23 10:48) Anaphylaxis Medication List - Last Reconciled 07/18/23 by Micheline Carmichael MD baclofen 10 mg PO Q8H PRN bisacodyl 10 mg (2 x 5 mg) PO BEDTIME commode (bedside commode) As directed [compression stockings As directed] epinephrine 0.3 mg (0.3 mL) IM Q10M PRN 30 days famotidine (Pepcid) 40 mg PO BEDTIME PRN ferrous sulfate 325 mg PO TID lactulose 105 mL PO BEDTIME PRN linaclotide (Linzess) 290 mcg PO QAM reixcf-eogeqqlz-cqyaguw 24,000-76,000 -120,000 unit (Creon) 1 cap PO QID metoclopramide HCl (Reglan) 10 mg PO QIDACHS naproxen 500 mg PO Q12H PRN oxybutynin chloride ER 10 mg PO Q12H rabeprazole (AcipHex) 20 mg PO BID [shower chair As directed] simethicone (Anti-Gas Ultra Strength) 180 mg PO TID Tobacco use date assessed: 07/18/23 Dental Screening Dental Screen Date: 07/18/23 Did you have a dental visit in the last 12 months?: Yes Did you have a dental problem in the last 6 months where you did not have access to dental care?: No Was dental information given to patient?: Patient has dentist HPI HPI Comments History of Present Illness Details This is a 43-year-old female with paraplegic cerebral palsy causing her to be wheelchair-bound, iron-deficiency anemia, GERD and chronic idiopathic constipation that comes today complaining of bilateral shoulder pain that has been present for few months. She has full active range of motion and denies previous trauma. She does lift many heavy things due to her paraplegic cerebral palsy. Hemoglobin has decreased despite having ferrous sulfate 3 times a day and this is why Hematology-Oncology will start her on IV iron supplement. GERD stable with PPIs. Constipation well controlled with Linzess. Had endoscopy and colonoscopy in 2021. No chest pain or shortness of breath. [facility] Medical History (Updated 07/18/23 @ 11:13 by Micheline Carmichael MD) History of gallstones Paraplegic cerebral palsy Paraplegic cerebral palsy COVID-19 vaccine series completed Wheelchair bound Family history of pancreatic cancer Leg edema Breast pain, right Neurogenic bladder Cerebral palsy Transverse myelitis Self-catheterizes urinary bladder Surgical History H/O major orthopedic surgery Hx of endoscopy Hx of colonoscopy History of bilateral tubal ligation History of Family History Father HTN (hypertension) Diabetes type 2, controlled Mother Pancreatic cancer Social History Household Members: Children Household Members Other:: minor children Housing: Apartment Are you a primary small animal caretaker to a significant other at home: Yes Do you presently have visiting nurse or other home services: Yes (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 1. Little interest or pleasure in doing things: not at all 2. Feeling down, depressed, or hopeless: not at all 3. Trouble falling or staying asleep, or sleeping too much: not at all 4. Feeling tired or having little energy: not at all 5. Poor appetite or overeating: not at all 6. Feeling bad about yourself - or that you are a failure or have let yourself or your family down: not at all 7. Trouble concentrating on things, such as reading the newspaper or watching television: not at all 8. Moving or speaking so slowly that other people could have noticed. Or the opposite - being so fidgety or restless that you have been moving around a lot more than usual: not at all 9. Thoughts that you would be better off or of hurting yourself in some way: not at all Total score: 0 Depression Screening Interpretation: Negative Depression Screening Done: Yes 11845 - PHQ-9 Billing: Yes Source: Developed by Drs. Aneesh Randle, Elina Olmos, Andrew Rizzo and colleagues, with an educational carmen from [employer]. Thrive Questionnaire Date Thrive assessed: 07/18/23 I am a: Patient What is your living situation today?: I have a steady place to live Within the past 12 months, did the food you bought not last and you didn't have the money to get more?: Never true Within the past 12 months, did you worry whether your food would run out before you got money to buy more?: Never true Do you have trouble paying for medicines?: No Do you have trouble getting transportation to medical appointments?: No Do you have trouble paying your heating and electricity bill?: No Do you have trouble taking care of your child, family member or friend?: No Do you have trouble with day-to-day activities such as bathing, preparing meals, shopping, managing finances, etc.?: Yes Are you currently unemployed and looking for a job?: No Are you interested in more education?: No Please select the resources that you would like help with: None Currently or been in a relationship where the following occur: no concerns reported THRIVE Score: 0 AUDIT C Alcohol Use Questionnaire (AUDIT-C) 1. How often do you have a drink containing alcohol?: Never Total Score: 0 KENN-7 AMB Questionnaire KENN-7 Date KENN - 7 assessed: 07/18/23 Feeling nervous, anxious, or on edge: 1 = Several days Not being able to stop or control worryin = Not at all Worrying too much about different things: 0 = Not at all Trouble relaxin = Not at all Being so restless that it is hard to sit still: 0 = Not at all Becoming easily annoyed or irritable: 0 = Not at all Feeling afraid as if something awful might happen: 0 = Not at all Total KENN-7 score (0-4 normal; 5-9 mild; 10-14 moderate; 15-21 severe): 1 Source: Developed by Drs. Aneesh Randle, Elina Olmos, Andrew Rizzo and colleagues, with an educational carmen from [employer]. KENN-7 Assessment Billing KENN-7 Assessment Tool: KENN-7 Assessment 68079 Review of Systems Const All systems reviewed & are unremarkable except as noted in HPI and below Eyes Reports no additional complaints, Denies change in vision and Denies other visual disturbances Card Denies chest pain at rest, Denies chest pain with activity, Denies edema, Denies irregular heart rhythm, Denies claudication, Denies dyspnea, Denies dyspnea on exertion, Denies orthopnea, Denies paroxysmal nocturnal dyspnea and Denies slow heart rate Resp Denies cough, Denies dyspnea and Denies dyspnea on exertion GI Denies abdominal pain, Denies change in bowel habits, Denies excessive flatus, Denies nausea and Denies vomiting Denies urinary incontinence, Denies urinary hesitancy and Denies urinary urgency Musc Denies abnormal gait, Denies atrophy, Denies deformity and Denies limited range of motion Skin/Breast Denies bleeding lesions, Denies changing lesions and Denies rash Neuro Denies abnormal gait, Denies behavioral changes and Denies lack of coordination Psych Denies behavioral changes Physical exam (Primary Care) Vital Signs: Last Vital Signs BP 120/82 07/18/23 10:37 BMI result Body Mass Index 23.9 Tobacco/Smoking Status: Tobacco use Status Tobacco use date assessed 07/18/23 07/18/23 10:43 Patient Tobacco Use Status Never used Tobacco 07/18/23 10:43 e-Cigarette/Vaping Use Never Used 07/18/23 10:43 PHQ-9: PHQ-9 Score PHQ-9: Total score 0 07/18/23 10:51 Depression Screening Interpretation: Negative Thrive Assessment: Date of Thrive Assessment Date Thrive assessed 07/18/23 07/18/23 10:43 Currently or been in a relationship where the following occur: no concerns reported Const Limitations: wheelchair Eyes General: appearance normal, both eyes and all related structures Eyelids: Yes eyelids normal Conjunctivae: conjunctivae normal Neck Neck: Yes normal visual inspection and Yes supple Resp Effort & Inspection: normal respiratory effort Auscultation: clear to auscultation bilaterally Cardio Jugular venous distension: no JVD Rate: regular rate Rhythm: regular rhythm Heart sounds: S1 normal heart sound present and S2 normal heart sound present Extrem General: Yes full ROM Assessment and Plan Assessment & Plan (1) Paraplegic cerebral palsy: Code(s): G80.8 - Other cerebral palsy Plan: Continue the use of wheelchair. (2) Right shoulder pain: Code(s): M25.511 - Pain in right shoulder Qualifiers: Chronicity: chronic Qualified Code(s): M25.511 - Pain in right shoulder; G89.29 - Other chronic pain Plan: X-ray ordered. (3) Left shoulder pain: Code(s): M25.512 - Pain in left shoulder Qualifiers: Chronicity: chronic Qualified Code(s): M25.512 - Pain in left shoulder; G89.29 - Other chronic pain Plan: XR ordered. (4) GERD (gastroesophageal reflux disease): Code(s): K21.9 - Gastro-esophageal reflux disease without esophagitis Qualifiers: Esophagitis presence: esophagitis presence not specified Qualified Code(s): K21.9 - Gastro-esophageal reflux disease without esophagitis Plan: Continue PPIs. (5) Chronic idiopathic constipation: Comment: Paraplegic Code(s): K59.04 - Chronic idiopathic constipation Plan: Continue Linzess. (6) Iron deficiency anemia: Code(s): D50.9 - Iron deficiency anemia, unspecified Qualifiers: Iron deficiency anemia type: chronic blood loss Qualified Code(s): D50.0 - Iron deficiency anemia secondary to blood loss (chronic) Plan: Follow-up with Hematology-Oncology. Start IV Ferrous. Orders: Orders XR shoulder RT min 2V Today M25.511 - Pain in right shoulder XR shoulder LT min 2V Today M25.512 - Pain in left shoulder Coding Level of Care Code Est Pt Level 4 (07877) Diagnoses Paraplegic cerebral palsy G80.8 Chronic right shoulder pain M25.511; G89.29 Chronicity: chronic Chronic left shoulder pain M25.512; G89.29 Chronicity: chronic Gastroesophageal reflux disease, unspecified whether esophagitis present K21.9 Esophagitis presence: esophagitis presence not specified Chronic idiopathic constipation K59.04 Iron deficiency anemia due to chronic blood loss D50.0 Iron deficiency anemia type: chronic blood loss Additional Codes KENN-7 Assessment Billing - KENN-7 Assessment Tool: KENN-7 Assessment 88405 ([id number]) Time Spent (min) 23
[2023-07-18 10:37] VITALS: BP 120/82; BMI 23.9
== END 2023-07-18 10:54 | disposition home or self-care (01) ==
PROVIDERS: PCP Internal Medicine; Visit Provider Internal Medicine
DX: G80.8 Other cerebral palsy (principal); M25.511 Pain in right shoulder; G89.29 Other chronic pain; M25.512 Pain in left shoulder; K21.9 Gastro-esophageal reflux disease without esophagitis; K59.04 Chronic idiopathic constipation; D50.0 Iron deficiency anemia secondary to blood loss (chronic)
CPT/HCPCS: 99214

== ENCOUNTER 2023-07-20 08:12 | Outpatient (AMB) | payer OTHER, SELFPAY ==
--- NOTE | 2023-07-20 08:16 | MHC.OFFVIS ---
Intake Vital Signs 07/20/23 08:28 Height 5 ft 3 in Weight 135 lb BMI 23.9 BP 114/73 Blood Pressure Location Lt brachial Position Sitting Pulse 92 Intake Visit Reasons: 6 month follow up Intake Note: Patient follow up for Constipation. Patient cc: nauseas, abdominal pain and bloating, heartburn, and between diarrhea and constipation. Denies any other GI issues. Speck Dyer Required: No Accompanied by: Self / Same As Patient Allergies Influenza Virus Vaccines Allergy (Severe, Verified 07/20/23 08:25) Anaphylaxis latex [LATEX] Allergy (Severe, Verified 07/20/23 08:25) ANAPHYLAXIS Sulfa (Sulfonamide Antibiotics) [SULFA (SULFONAMIDE ANTIBIOTICS)] Allergy (Severe, Verified 07/20/23 08:25) Anaphylaxis HPI 6 month follow up HPI Details Assessment & Plan (1) Delayed gastric emptying: Code(s): K30 - Functional dyspepsia Plan: She was seen by Dr. Hernandez for consultation for possible cholecystectomy. No definitive plans have been made, she is considering this as an option. she continues on Reglan, AcipHex, Linzess, creon, simethicone, famotidine, lactulose and bisacodyl. For now she is satisfied with her GI regimen and agreeable for 6 month follow-up. (2) GERD (gastroesophageal reflux disease): Code(s): K21.9 - Gastro-esophageal reflux disease without esophagitis Qualifiers: Esophagitis presence: esophagitis presence not specified Qualified Code(s): K21.9 - Gastro-esophageal reflux disease without esophagitis (3) Chronic idiopathic constipation: Comment: Paraplegic Code(s): K59.04 - Chronic idiopathic constipation (4) Gallstones: Code(s): K80.20 - Calculus of gallbladder without cholecystitis without obstruction Medications: Refilled lactulose 10 grams (15 mL) P O BEDTIME 30 days PRN 473 mL 6RF con stipation K59.01 - Slow hamilton sit constipation bisacodyl 10 mg (2 x 5 mg) P O BEDTIME 60 tabs 6RF K59.04 - Chronic i diopathic constipa tion famotidine (Pepcid ) 40 mg PO BEDTIME PRN 90 tabs 4RF he artburn linaclotide (Linze ss) 290 mcg PO QAM 30 caps 6RF K59.04 - Chronic i diopathic constipa tion aounrg-zgouaggz-re ylase 24,000-76,00 0 -120,000 unit (C reon) 1 cap PO QID 120 caps 6RF K58.9 - Irritable bowel syndrome wit hout diarrhea, K80 .20 - Calculus of gallbladder withou t cholecystitis wi thout obstruction metoclopramide HCl (Reglan) 10 mg PO QIDACHS 120 tabs 6RF K30 - Functional d yspepsia rabeprazole (AcipH ex) 20 mg PO BID 60 t abs 6RF K22.10 - Ulcer of esophagus without bleeding simethicone (Anti- Gas Ultra Strength ) 180 mg PO TID 90 caps 6RF TODAY'S VISIT She continues on Reglan, AcipHex, Linzess, creon, simethicone, famotidine, lactulose and bisacodyl. She continues to struggle, her immobility is a major c/f. I do not think we can maximize or add any medications to her already complex regimen. So we discussed fiber. She is uncertain of how much fiber she eats in a day and it may not be enough for her situation so she is quite agreeable to trying a generic fiber supplement. I also remind her to keep her fluid intake high which is something she does try to do. She has constant pain at mouth of my stomach and so we discuss Mylanta for this; carafate would not be good given her CIC. Again, she seems to have gallbladder dysfunction but isn't a good surgical candidate for cholecystectomy at this time. Return office visit in 3 months [facility] Medical History (Updated 07/20/23 @ 08:18 by MANJEET Peterson) Leg edema Physical exam Abnormal mammogram Iron deficiency anemia Early satiety Cerebral palsy History of gallstones Paraplegic cerebral palsy Paraplegic cerebral palsy COVID-19 vaccine series completed Wheelchair bound Family history of pancreatic cancer Leg edema Breast pain, right Neurogenic bladder Transverse myelitis Self-catheterizes urinary bladder Surgical History H/O major orthopedic surgery Hx of endoscopy Hx of colonoscopy History of bilateral tubal ligation History of Family History Father HTN (hypertension) Diabetes type 2, controlled Mother Pancreatic cancer Social History Household Members: Children Household Members Other:: minor children Housing: Apartment 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 at 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: Yes Do you presently have visiting nurse or other home services: Yes (H[employer]ISTIC [employer]IST services) Alcohol intake: never Comment: w/c bound due to cerebral palsy-needs one assist to transfer Patient Tobacco Use Status: Never used Tobacco e-Cigarette/Vaping Use: Never Used Second Hand Smoke Exposure: No Advance Directives Date on File: 02/28/20 service: No Current occupational status: disabled Sexual orientation: Straight/Heterosexual Gender identity: Female Cognitive needs: Yes Hearing needs: No Vision needs: No Female Reproductive History Menstrual Age of Menarche: 11 Review of Systems Const Denies fatigue, Denies fever(s), Denies night sweats, Denies poor appetite and Denies weight loss ENT Reports Normal hearing present, Denies dental pain, Denies dysphagia, Denies hearing loss, Denies mouth pain, Denies odynophagia, Denies throat swelling, Denies tongue swelling and Reports other (Dentition adequate) Card Reports no additional complaints Resp Reports no additional complaints GI Details: Reports abdominal pain, Denies melena, Reports bloating, Denies hematochezia, Reports constipation, Denies GI cramping, Denies dysphagia, Denies excessive flatus, Denies early satiety, Reports heartburn, Denies diarrhea, Denies nausea, Denies odynophagia, Denies vomiting and Denies hematemesis Musc Reports abnormal gait Skin/Breast Denies pruritus, Denies lesions, Denies rash and Denies jaundice Neuro Reports Normal hearing present, Denies Abnormal speech present, Reports abnormal gait and Reports focal weakness Endo Denies fatigue Aller/Immun Denies throat swelling and Denies tongue swelling Physical Exam Vital Signs: Last Vital Signs Pulse 92 07/20/23 08:28 BP 114/73 07/20/23 08:28 BMI result Body Mass Index 23.9 Const General: cooperative, no acute distress, well developed and well groomed Nutritional Appearance: well nourished and obese centrally obese Orientation/consciousness: oriented to person, oriented to place and oriented to time Limitations: No language barrier and wheelchair HEENT Head: Yes normocephalic and Yes atraumatic Eyes General: appearance normal, both eyes and all related structures Pupils: Equal, round and reactive pupils present Neck Neck: Yes normal visual inspection and Yes no lymphadenopathy Thyroid: Thyroid normal Resp Effort & Inspection: normal respiratory effort and able to speak in complete sentences Auscultation: clear to auscultation bilaterally Cardio Rate: regular rate Rhythm: regular rhythm Heart sounds: Normal, physiologic split S2 sound present Peripheral pulses: radial pulses present and posterior tibial pulses present GI Inspection: No distended, No Abdominal panniculus present and Yes obesity Palpation (GI): Soft to palpation, nontender, no guarding, not rigid and No hepatosplenomegaly present Percussion: Yes normal to percussion Auscultation: normal bowel sounds Rectal Exam - Female: deferred Skin General skin exam: no rashes or lesions noted, turgor normal, skin not dry, no jaundice, No spider nevi and no striae Rashes: no rashes Nails: normal Neuro General: oriented to person, oriented to place and oriented to time Cranial nerves: Yes Equal, round and reactive pupils present and Yes Normal hearing present Speech: No Abnormal speech present Psych Appearance: grossly normal and well kempt Mental Status: mental status grossly normal Speech and movement: Normal speech and movement present Affect: normal affect Attitude: cooperative Thought process: Normal thought process present and not confabulating Thought content: Normal thought content present Insight: Fair insight present (Psych) Judgement: Fair judgement present (Psych) Assessment & Plan Assessment & Plan (1) Chronic idiopathic constipation: Comment: Paraplegic Code(s): K59.04 - Chronic idiopathic constipation (2) GERD (gastroesophageal reflux disease): Code(s): K21.9 - Gastro-esophageal reflux disease without esophagitis Qualifiers: Esophagitis presence: esophagitis presence not specified Qualified Code(s): K21.9 - Gastro-esophageal reflux disease without esophagitis (3) Erosive esophagitis: Code(s): K22.10 - Ulcer of esophagus without bleeding (4) Delayed gastric emptying: Code(s): K30 - Functional dyspepsia (5) Gallstones: Code(s): K80.20 - Calculus of gallbladder without cholecystitis without obstruction Plan She continues on Reglan, AcipHex, Linzess, creon, simethicone, famotidine, lactulose and bisacodyl. She continues to struggle, her immobility is a major c/f. I do not think we can maximize or add any medications to her already complex regimen. So we discussed fiber. She is uncertain of how much fiber she eats in a day and it may not be enough for her situation so she is quite agreeable to trying a generic fiber supplement. I also remind her to keep her fluid intake high which is something she does try to do. She has constant pain at mouth of my stomach and so we discuss Mylanta for this; carafate would not be good given her CIC. Again, she seems to have gallbladder dysfunction but isn't a good surgical candidate for cholecystectomy at this time. Return office visit in 3 months Medications: New alum-mag hydroxide-simeth 400-400-40 mg/5 mL (Mylanta Maximum Strength) 10 mL PO TID PRN 3,000 mL 6RF indigestion Refilled bisacodyl 10 mg (2 x 5 mg) PO BEDTIME 60 tabs 6RF K59.04 - Chronic idiopathic constipation lactulose 105 mL PO BEDTIME PRN 473 mL 6RF for constipation K59.01 - Slow transit constipation linaclotide (Linzess) 290 mcg PO QAM 30 caps 6RF K59.04 - Chronic idiopathic constipation ydshgf-xncchwaq-asgrend 24,000-76,000 -120,000 unit (Creon) 1 cap PO QID 120 caps 6RF K58.9 - Irritable bowel syndrome without diarrhea, K80.20 - Calculus of gallbladder without cholecystitis without obstruction famotidine (Pepcid) 40 mg PO BEDTIME PRN 90 tabs 4RF heartburn metoclopramide HCl (Reglan) 10 mg PO QIDACHS 120 tabs 6RF K30 - Functional dyspepsia rabeprazole (AcipHex) 20 mg PO BID 60 tabs 6RF K22.10 - Ulcer of esophagus without bleeding Coding Level of Care Code Est Pt Level 3 (93871) Diagnoses Chronic idiopathic constipation K59.04 Gastroesophageal reflux disease, unspecified whether esophagitis present K21.9 Esophagitis presence: esophagitis presence not specified Erosive esophagitis K22.10 Delayed gastric emptying K30 Gallstones K80.20
[2023-07-20 08:28] VITALS: BP 114/73; PULSE 92; BMI 23.9
== END 2023-07-20 08:52 | disposition home or self-care (01) ==
PROVIDERS: PCP Internal Medicine; Visit Provider Nurse Practitioner
DX: K59.04 Chronic idiopathic constipation (principal); K21.9 Gastro-esophageal reflux disease without esophagitis; K22.10 Ulcer of esophagus without bleeding; K30 Functional dyspepsia; K80.20 Calculus of gallbladder without cholecystitis without obstruction
CPT/HCPCS: 99213

== ENCOUNTER → 2023-07-20 08:12 | Outpatient (BNVA) | payer OTHER, SELFPAY | PROVIDERS: PCP Internal Medicine; Visit Provider Nurse Practitioner | DX: K59.04 Chronic idiopathic constipation (principal); K21.9 Gastro-esophageal reflux disease without esophagitis; K22.10 Ulcer of esophagus without bleeding; K30 Functional dyspepsia; K80.20 Calculus of gallbladder without cholecystitis without obstruction | CPT/HCPCS: 99212 ==

== ENCOUNTER 2023-07-27 08:59 | Outpatient (REF) | payer OTHER, SELFPAY ==
[2023-07-27 09:10] VITALS: BP 118/78; PULSE 91; RESP 18; TEMP 36.4
[2023-07-27] MEDS: Iron Sucrose Complex 200 MG in 0.9 % Sodium Chloride 100 ML 440 MG IV (09:38)
== END 2023-07-27 09:00 | disposition home or self-care (01) ==
LOC: HO.MDS 08:59
PROVIDERS: Visit Provider Internal Medicine Medical Oncology
DX: D50.9 Iron deficiency anemia, unspecified (principal)
CPT/HCPCS: 96365; J1756

== ENCOUNTER 2023-08-02 10:31 | Outpatient (REF) | payer OTHER, SELFPAY ==
--- NOTE | ~2023-08-02 | XR_ITS ---
EXAMINATION: 1. RADIOGRAPHS RIGHT SHOULDER 2. RADIOGRAPHS LEFT SHOULDER CLINICAL INFORMATION: Bilateral shoulder pain COMPARISON: None TECHNIQUE: 3 views of each shoulder were obtained. FINDINGS: Right shoulder: Visualized portions of the proximal humerus demonstrate no fracture. Humeral head demonstrates good articulation with the glenoid fossa. No significant degenerative changes of the shoulder. Visualized ribs and lung parenchyma are unremarkable. Left shoulder: Visualized portions of the proximal humerus demonstrate no fracture. Humeral head demonstrates good articulation with the glenoid fossa. No significant degenerative changes of the shoulder. Visualized ribs and lung parenchyma are unremarkable. XR/XR shoulder LT min 2V IMPRESSION: Unremarkable radiographs of the bilateral shoulders.
--- NOTE | ~2023-08-02 | XR_ITS ---
EXAMINATION: 1. RADIOGRAPHS RIGHT SHOULDER 2. RADIOGRAPHS LEFT SHOULDER CLINICAL INFORMATION: Bilateral shoulder pain COMPARISON: None TECHNIQUE: 3 views of each shoulder were obtained. FINDINGS: Right shoulder: Visualized portions of the proximal humerus demonstrate no fracture. Humeral head demonstrates good articulation with the glenoid fossa. No significant degenerative changes of the shoulder. Visualized ribs and lung parenchyma are unremarkable. Left shoulder: Visualized portions of the proximal humerus demonstrate no fracture. Humeral head demonstrates good articulation with the glenoid fossa. No significant degenerative changes of the shoulder. Visualized ribs and lung parenchyma are unremarkable. XR/XR shoulder RT min 2V IMPRESSION: Unremarkable radiographs of the bilateral shoulders.
[2023-08-02 11:37] VITALS: BP 133/87; PULSE 94; RESP 18; TEMP 36.8; O2SAT 98; BMI 23.9
[2023-08-02] MEDS: Iron Sucrose Complex 200 MG in 0.9 % Sodium Chloride 100 ML 440 MG IV (11:51)
== END 2023-08-02 10:32 | disposition home or self-care (01) ==
LOC: HO.MDS 10:31
PROVIDERS: Absent Provider Internal Medicine; PCP Internal Medicine; Visit Provider Internal Medicine Medical Oncology
DX: D50.9 Iron deficiency anemia, unspecified (principal); M25.511 Pain in right shoulder; M25.512 Pain in left shoulder
CPT/HCPCS: 73030; 96365; J1756

== ENCOUNTER 2023-08-09 09:07 | Outpatient (REF) | payer OTHER, SELFPAY ==
[2023-08-09 09:13] VITALS: BP 131/81; PULSE 79; RESP 16; TEMP 36.6; O2SAT 100
[2023-08-09] MEDS: Iron Sucrose Complex 200 MG in 0.9 % Sodium Chloride 100 ML 440 MG IV (09:22)
== END 2023-08-09 09:08 | disposition home or self-care (01) ==
LOC: HO.MDS 09:07
PROVIDERS: Visit Provider Internal Medicine Medical Oncology
DX: D50.9 Iron deficiency anemia, unspecified (principal)
CPT/HCPCS: 96374; J1756

== ENCOUNTER 2023-08-14 08:47 | Outpatient (REF) | payer OTHER, SELFPAY ==
[2023-08-14 08:48] VITALS: BP 122/84; PULSE 88; RESP 16; TEMP 36.5; O2SAT 100
[2023-08-14] MEDS: Iron Sucrose Complex 200 MG in 0.9 % Sodium Chloride 100 ML 440 MG IV (08:51)
--- NOTE | 2023-08-14 08:51 | PC.NURSE ---
phlebotomy called for ordered labs
--- NOTE | 2023-08-14 09:13 | PC.NURSE ---
phlebotomy at bedside
[2023-08-14 09:25] LABS: MANUAL DIFF FLAG NO
[2023-08-14 09:28] LABS: Basophils Percent Auto 0.3 % (0-2); Eosinophils Absolute Auto 0.1 X10*3/uL (0.0-0.4); Eosinophils Percent Auto 1.2 % (0-4); Hematocrit 32.1 % (37.0-47.0); Hemoglobin 9.5 g/dl (12.0-16.0); Imm Gran Abs Auto 0.05 X10*3/uL (0.00-0.03); Imm Gran Pct Auto 0.5 % (0.0-0.4); Lymphocytes Absolute Auto 2.1 X10*3/uL (1.2-4.9); Lymphocytes Percent Auto 20.6 % (20-40); Mean Corpuscular HGB Conc 29.6 g/dl (31.0-35.0); Mean Corpuscular Hemoglobin 22.6 pg (27.0-33.0); Mean Corpuscular Volume 76.4 fL (80.0-98.0); Monocytes Absolute Auto 0.6 X10*3/uL (0.1-1.2); Monocytes Percent Auto 5.6 % (2-11); Neutrophils Absolute Auto 7.2 x10*3/uL (2.0-8.3); Neutrophils Percent Auto 71.8 % (45-73); Platelet Count 375 X10*3/uL (160-400); Red Cell Distribution Width 22.7 % (11.0-16.0)
[2023-08-14 10:01] LABS: Ferritin 172 ng/mL (10-250)
== END 2023-08-14 08:48 | disposition home or self-care (01) ==
LOC: HO.MDS 08:47
PROVIDERS: Visit Provider Internal Medicine Medical Oncology
DX: D50.9 Iron deficiency anemia, unspecified (principal)
CPT/HCPCS: 36415; 82728; 85025; 96374; J1756

== ENCOUNTER 2023-10-17 08:04 | Outpatient (AMB) | payer OTHER, SELFPAY ==
[2023-10-17 08:08] VITALS: BP 144/94; PULSE 105; BMI 23.9
--- NOTE | 2023-10-17 08:08 | MHC.OFFVIS ---
Vital Signs 10/17/23 08:08 Height 5 ft 3 in Weight 135 lb BMI 23.9 BP 144/94 H Blood Pressure Location Lt brachial Position Sitting Pulse 105 H Comment wt stated per patient/wheelchair bound Intake Visit Reasons: 3 month follow up CIC, GERD, N/V Intake Note: Patient in office today in follow up of CIC and GERD. CC: Patient reports nausea, constipation sometimes, epigastric, acid reflux, heartburn. She states that the medications help a little bit with GERD. Plumbing Installer Required: No Accompanied by: Self / Same As Patient Allergies Influenza Virus Vaccines Allergy (Severe, Verified 10/17/23 08:11) Anaphylaxis latex [LATEX] Allergy (Severe, Verified 10/17/23 08:11) ANAPHYLAXIS Sulfa (Sulfonamide Antibiotics) [SULFA (SULFONAMIDE ANTIBIOTICS)] Allergy (Severe, Verified 10/17/23 08:11) Anaphylaxis HPI HPI 3 month follow up CIC, GERD, N/V: Details: Assessment & Plan (1) Chronic idiopathic constipation: Comment: Paraplegic Code(s): K59.04 - Chronic idiopathic constipation (2) GERD (gastroesophageal reflux disease): Code(s): K21.9 - Gastro-esophageal reflux disease without esophagitis Qualifiers: Esophagitis presence: esophagitis presence not specified Qualified Code(s): K21.9 - Gastro-esophageal reflux disease without esophagitis (3) Erosive esophagitis: Code(s): K22.10 - Ulcer of esophagus without bleeding (4) Delayed gastric emptying: Code(s): K30 - Functional dyspepsia (5) Gallstones: Code(s): K80.20 - Calculus of gallbladder without cholecystitis without obstruction Plan She continues on Reglan, AcipHex, Linzess, creon, simethicone, famotidine, lactulose and bisacodyl. She continues to struggle, her immobility is a major c/f. I do not think we can maximize or add any medications to her already complex regimen. So we discussed fiber. She is uncertain of how much fiber she eats in a day and it may not be enough for her situation so she is quite agreeable to trying a generic fiber supplement. I also remind her to keep her fluid intake high which is something she does try to do. She has constant pain at mouth of my stomach and so we discuss Mylanta for this; carafate would not be good given her CIC. Again, she seems to have gallbladder dysfunction but isn't a good surgical candidate for cholecystectomy at this time. Return office visit in 3 months Medications: New alum-mag hydroxide-simeth 400-400-40 mg/5 mL (Mylanta Maximum Strength) 10 mL PO TID PRN 3,000 mL 6RF indigestion Refilled bisacodyl 10 mg (2 x 5 mg) PO BEDTIME 60 tabs 6RF K59.04 - Chronic idiopathic constipation lactulose 105 mL PO BEDTIME PRN 473 mL 6RF for constipation K59.01 - Slow transit constipation linaclotide (Linzess) 290 mcg PO QAM 30 caps 6RF K59.04 - Chronic idiopathic constipation lztgsw-ahtoiiit-fpkowxk 24,000-76,000 -120,000 unit (Creon) 1 cap PO QID 120 caps 6RF K58.9 - Irritable bowel syndrome without diarrhea, K80.20 - Calculus of gallbladder without cholecystitis without obstruction famotidine (Pepcid) 40 mg PO BEDTIME PRN 90 tabs 4RF heartburn metoclopramide HCl (Reglan) 10 mg PO QIDACHS 120 tabs 6RF K30 - Functional dyspepsia rabeprazole (AcipHex) 20 mg PO BID 60 tabs 6RF K22.10 - Ulcer of esophagus without bleeding TODAY'S VISI She says she has continues to do okay. She faces many obstacles in her general health including her mobility that effects the GI system. But she does feel that we have improved he condition since we started treatment. She still struggles with HB, but she has been through many high dose PPI's etc and her short staure seems to c/t this. She does not feel we need to change any of her GI regimen at this time. She continues on Reglan, AcipHex, Linzess, creon, simethicone, famotidine, lactulose and bisacodyl. (She has constant pain at mouth of my stomach and so we discuss Mylanta for this; carafate would not be good given her CIC. Again, she seems to have gallbladder dysfunction but isn't a good surgical candidate for cholecystectomy at this time.) ROV 6 mos. [facility] Medical History (Updated 07/20/23 @ 08:18 by MANJEET Peterson) Leg edema Physical exam Abnormal mammogram Iron deficiency anemia Early satiety Cerebral palsy History of gallstones Paraplegic cerebral palsy Paraplegic cerebral palsy COVID-19 vaccine series completed Wheelchair bound Family history of pancreatic cancer Leg edema Breast pain, right Neurogenic bladder Transverse myelitis Self-catheterizes urinary bladder Surgical History H/O major orthopedic surgery Hx of endoscopy Hx of colonoscopy History of bilateral tubal ligation History of Family History Father HTN (hypertension) Diabetes type 2, controlled Mother Pancreatic cancer Social History Household Members: Children Household Members Other:: minor children Housing: Apartment 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 Do you presently have visiting nurse or other home services: Yes ([employer]ULAR T[employer]IST services) Alcohol intake: never Comment: w/c bound due to cerebral palsy-needs one assist to transfer Patient Tobacco Use Status: Never used Tobacco e-Cigarette/Vaping Use: Never Used Second Hand Smoke Exposure: No Advance Directives Date on File: 02/28/20 service: No Current occupational status: disabled Sexual orientation: Straight/Heterosexual Gender identity: Female Cognitive needs: Yes Hearing needs: No Vision needs: No Female Reproductive History Menstrual Age of Menarche: 11 Review of Systems Const Denies fatigue, Denies fever(s), Denies night sweats, Denies poor appetite and Denies weight loss ENT Reports Normal hearing present, Denies dysphagia, Denies odynophagia, Denies throat swelling and Denies tongue swelling Card Reports no additional complaints Resp Reports no additional complaints GI Details: Reports abdominal pain, Denies melena, Reports bloating, Denies hematochezia, Reports constipation, Denies GI cramping, Denies dysphagia, Denies excessive flatus, Reports early satiety, Reports heartburn, Denies diarrhea, Denies nausea, Denies odynophagia, Denies vomiting and Denies hematemesis Musc Reports deformity, Reports arthralgias and Reports muscle weakness Skin/Breast Denies pruritus, Denies lesions, Denies rash and Denies jaundice Neuro Reports Normal hearing present, Denies Abnormal speech present and Reports lack of coordination Endo Denies fatigue Aller/Immun Denies throat swelling and Denies tongue swelling Physical Exam Vital Signs: Last Vital Signs Pulse 105 H 10/17/23 08:08 BP 144/94 H 10/17/23 08:08 BMI result Body Mass Index 23.9 Const General: cooperative, no acute distress, well developed and well groomed Nutritional Appearance: well nourished and obese Orientation/consciousness: oriented to person, oriented to place and oriented to time Limitations: No language barrier and wheelchair HEENT Head: Yes normocephalic and Yes atraumatic Eyes General: appearance normal, both eyes and all related structures Pupils: Equal, round and reactive pupils present Neck Neck: Yes normal visual inspection and Yes no lymphadenopathy Thyroid: Thyroid normal Resp Effort & Inspection: normal respiratory effort and able to speak in complete sentences Auscultation: clear to auscultation bilaterally Cardio Rate: regular rate Rhythm: regular rhythm Heart sounds: Normal, physiologic split S2 sound present Peripheral pulses: radial pulses present and posterior tibial pulses present GI Inspection: No distended, Yes Abdominal panniculus present and Yes obesity Palpation (GI): Soft to palpation, nontender, no guarding, not rigid and No hepatosplenomegaly present Percussion: Yes normal to percussion Auscultation: normal bowel sounds Rectal Exam - Female: deferred Skin General skin exam: no rashes or lesions noted, turgor normal, skin not dry, no jaundice, No spider nevi and no striae Rashes: no rashes Nails: normal Neuro General: oriented to person, oriented to place and oriented to time Cranial nerves: Yes Equal, round and reactive pupils present and Yes Normal hearing present Speech: No Abnormal speech present Extrem General: Yes normal to inspection, No clubbing, No cyanosis and No edema Psych Appearance: grossly normal and well kempt Mental Status: mental status grossly normal Speech and movement: Normal speech and movement present Affect: normal affect Attitude: cooperative Thought process: Normal thought process present and not confabulating Thought content: Normal thought content present Insight: Good insight present (Psych) Judgement: Good judgement present (Psych) Assessment & Plan Assessment & Plan (1) Chronic idiopathic constipation: Comment: Paraplegic Code(s): K59.04 - Chronic idiopathic constipation Category: Medical (2) GERD (gastroesophageal reflux disease): Code(s): K21.9 - Gastro-esophageal reflux disease without esophagitis Category: Medical Qualifiers: Esophagitis presence: esophagitis presence not specified Qualified Code(s): K21.9 - Gastro-esophageal reflux disease without esophagitis (3) Erosive esophagitis: Code(s): K22.10 - Ulcer of esophagus without bleeding Category: Medical (4) Delayed gastric emptying: Code(s): K30 - Functional dyspepsia Category: Medical (5) Wheelchair bound: Comment: one person assist to transfer per patient Code(s): Z99.3 - Dependence on wheelchair Category: Medical (6) Gastritis: Comment: Mild chronic on 2019 EGD inactive by biopsy no H pylori Code(s): K29.70 - Gastritis, unspecified, without bleeding Category: Medical (7) Paraplegic cerebral palsy: Code(s): G80.8 - Other cerebral palsy Category: Medical Plan She says she has continues to do okay. She faces many obstacles in her general health including her mobility that effects the GI system. But she does feel that we have improved he condition since we started treatment. She still struggles with HB, but she has been through many high dose PPI's etc and her short staure seems to c/t this. She does not feel we need to change any of her GI regimen at this time. She continues on Reglan, AcipHex, Linzess, creon, simethicone, famotidine, lactulose and bisacodyl. (She has constant pain at mouth of my stomach and so we discuss Mylanta for this; carafate would not be good given her CIC. Again, she seems to have gallbladder dysfunction but isn't a good surgical candidate for cholecystectomy at this time.) ROV 6 mos. Medications: Refilled famotidine (Pepcid) 40 mg PO BEDTIME PRN 90 tabs 4RF heartburn linaclotide (Linzess) 290 mcg PO QAM 30 caps 6RF K59.04 - Chronic idiopathic constipation metoclopramide HCl (Reglan) 10 mg PO QIDACHS 120 tabs 6RF K30 - Functional dyspepsia bisacodyl 10 mg (2 x 5 mg) PO BEDTIME 60 tabs 6RF K59.04 - Chronic idiopathic constipation qfjydt-fvmeypeo-vvwggjd 24,000-76,000 -120,000 unit (Creon) 1 cap PO QID 120 caps 6RF K58.9 - Irritable bowel syndrome without diarrhea, K80.20 - Calculus of gallbladder without cholecystitis without obstruction rabeprazole (AcipHex) 20 mg PO BID 60 tabs 6RF K22.10 - Ulcer of esophagus without bleeding simethicone (Anti-Gas Ultra Strength) 180 mg PO TID 90 caps 6RF Coding Level of Care Code Est Pt Level 3 (17886) Diagnoses Chronic idiopathic constipation K59.04 Gastroesophageal reflux disease, unspecified whether esophagitis present K21.9 Esophagitis presence: esophagitis presence not specified Erosive esophagitis K22.10 Delayed gastric emptying K30 Wheelchair bound Z99.3 Gastritis K29.70 Paraplegic cerebral palsy G80.8
== END 2023-10-17 08:32 | disposition home or self-care (01) ==
PROVIDERS: PCP Internal Medicine; Visit Provider Nurse Practitioner
DX: K59.04 Chronic idiopathic constipation (principal); K21.9 Gastro-esophageal reflux disease without esophagitis; K22.10 Ulcer of esophagus without bleeding; K30 Functional dyspepsia; Z99.3 Dependence on wheelchair; K29.70 Gastritis, unspecified, without bleeding; G80.8 Other cerebral palsy
CPT/HCPCS: 99213

== ENCOUNTER → 2023-10-17 08:04 | Outpatient (BNVA) | payer OTHER, SELFPAY | PROVIDERS: PCP Internal Medicine; Visit Provider Nurse Practitioner | DX: K59.04 Chronic idiopathic constipation (principal); K21.9 Gastro-esophageal reflux disease without esophagitis; K22.10 Ulcer of esophagus without bleeding; K30 Functional dyspepsia; K29.70 Gastritis, unspecified, without bleeding; G80.8 Other cerebral palsy; Z99.3 Dependence on wheelchair | CPT/HCPCS: 99212 ==

== ENCOUNTER 2023-12-11 11:06 | Outpatient (AMB) | payer OTHER, SELFPAY ==
--- NOTE | 2023-12-11 11:11 | A.OFFPC_ITS ---
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: No Accompanied by: Self / Same As Patient Allergies Influenza Virus Vaccines Allergy (Severe, Verified 12/11/23 11:19) Anaphylaxis latex [LATEX] Allergy (Severe, Verified 12/11/23 11:19) ANAPHYLAXIS Sulfa (Sulfonamide Antibiotics) [SULFA (SULFONAMIDE ANTIBIOTICS)] Allergy (Severe, Verified 12/11/23 11:19) Anaphylaxis Medication List - Last Reconciled 12/11/23 by Micheline Carmichael MD alum-mag hydroxide-simeth 400-400-40 mg/5 mL (Mylanta Maximum Strength) 10 mL PO TID PRN baclofen 10 mg PO Q8H PRN bisacodyl 10 mg (2 x 5 mg) PO BEDTIME commode (bedside commode) As directed [compression stockings As directed] epinephrine 0.3 mg (0.3 mL) IM Q10M PRN 30 days famotidine (Pepcid) 40 mg PO BEDTIME PRN ferrous sulfate 325 mg PO TID lactulose 105 mL PO BEDTIME PRN linaclotide (Linzess) 290 mcg PO QAM [id number] 24,000-76,000 -120,000 unit (Creon) 1 cap PO QID metoclopramide HCl (Reglan) 10 mg PO QIDACHS naproxen 500 mg PO Q12H PRN oxybutynin chloride ER 10 mg PO Q12H rabeprazole (AcipHex) 20 mg PO BID [shower chair As directed] simethicone (Anti-Gas Ultra Strength) 180 mg PO TID Tobacco use date assessed: 07/18/23 Dental Screening Dental Screen Date: 07/18/23 HPI HPI Comments History of Present Illness Details This is a 43-year-old female with 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 She has a counselor at [facility] for this matter. We will start her on escitalopram at bedtime. Side effects such as abdominal pain were discussed. Also if suicidal thoughts happen she needs to discontinue medication. On ferrous sulfate for anemia. On famotidine for GERD and follow by GI. Constipation stable with Linzess. [facility] Medical History (Updated 12/11/23 @ 11:25 by Micheline Carmichael MD) Leg edema Physical exam Abnormal mammogram Iron deficiency anemia Early satiety Cerebral palsy History of gallstones Paraplegic cerebral palsy Paraplegic cerebral palsy COVID-19 vaccine series completed Wheelchair bound Family history of pancreatic cancer Leg edema Breast pain, right Neurogenic bladder Transverse myelitis Self-catheterizes urinary bladder Surgical History H/O major orthopedic surgery Hx of endoscopy Hx of colonoscopy History of bilateral tubal ligation History of Family History Father HTN (hypertension) Diabetes type 2, controlled Mother Pancreatic cancer Social History Household Members: Children Household Members Other:: minor children Housing: Apartment Are you a primary animal care provider to a significant other at home: Yes Do you presently have visiting nurse or other home services: Yes ([employer] services) Alcohol intake: never Comment: w/c bound due to cerebral palsy-needs one assist to transfer Patient Tobacco Use Status: Never used Tobacco e-Cigarette/Vaping Use: Never Used Second Hand Smoke Exposure: No Advance Directives Date on File: 02/28/20 service: No Current occupational status: disabled Sexual orientation: Straight/Heterosexual Gender identity: Female Cognitive needs: Yes Hearing needs: No Vision needs: No Female Reproductive History Menstrual Age of Menarche: 11 Questionnaire Thrive Questionnaire Date Thrive assessed: 07/18/23 KENN-7 AMB Questionnaire KENN-7 Date KENN - 7 assessed: 07/18/23 Feeling nervous, anxious, or on edge: 2 = More than half the days Not being able to stop or control worryin = More than half the days Worrying too much about different things: 2 = More than half the days Trouble relaxin = More than half the days Being so restless that it is hard to sit still: 0 = Not at all Becoming easily annoyed or irritable: 0 = Not at all Feeling afraid as if something awful might happen: 0 = Not at all Total KENN-7 score (0-4 normal; 5-9 mild; 10-14 moderate; 15-21 severe): 8 Source: Developed by Drs. Aneesh Randle, Elina Olmos, Andrew Rizzo and colleagues, with an educational carmen from [employer]. KENN-7 Assessment Billing KENN-7 Assessment Tool: KENN-7 Assessment 84225 Review of Systems Const All systems reviewed & are unremarkable except as noted in HPI and below Card Denies chest pain at rest, Denies chest pain with activity, Denies edema, Denies irregular heart rhythm, Denies claudication, Denies dyspnea, Denies dyspnea on exertion, Denies orthopnea, Denies paroxysmal nocturnal dyspnea and Denies slow heart rate Resp Denies cough, Denies dyspnea and Denies dyspnea on exertion Physical exam (Primary Care) Vital Signs: Last Vital Signs Pulse 10 L 12/11/23 11:15 BP 110/78 12/11/23 11:15 Pulse Ox 96 12/11/23 11:15 Oxygen Delivery Method Room Air 12/11/23 11:15 Tobacco/Smoking Status: Tobacco use Status Tobacco use date assessed 07/18/23 12/11/23 11:15 Patient Tobacco Use Status Never used Tobacco 12/11/23 11:15 e-Cigarette/Vaping Use Never Used 12/11/23 11:15 Thrive Assessment: Date of Thrive Assessment Date Thrive assessed 07/18/23 12/11/23 11:15 Const Limitations: wheelchair Resp Effort & Inspection: normal respiratory effort Auscultation: clear to auscultation bilaterally Cardio Jugular venous distension: no JVD Rate: regular rate Rhythm: regular rhythm Heart sounds: S1 normal heart sound present and S2 normal heart sound present Assessment and Plan Assessment & Plan (1) Anxiety: Code(s): F41.9 - Anxiety disorder, unspecified Plan: Start escitalopram. Follow-up with counseling. (2) Anemia: Code(s): D64.9 - Anemia, unspecified Qualifiers: Anemia type: iron deficiency Iron deficiency anemia type: chronic blood loss Qualified Code(s): D50.0 - Iron deficiency anemia secondary to blood loss (chronic) Plan: Continue ferrous sulfate. Follow-up with Hematology-Oncology. (3) Chronic idiopathic constipation: Comment: Paraplegic Code(s): K59.04 - Chronic idiopathic constipation Plan: Continue Linzess. (4) GERD (gastroesophageal reflux disease): Code(s): K21.9 - Gastro-esophageal reflux disease without esophagitis Qualifiers: Esophagitis presence: esophagitis presence not specified Qualified Code(s): K21.9 - Gastro-esophageal reflux disease without esophagitis Plan: Continue famotidine. (5) Paraplegic cerebral palsy: Code(s): G80.8 - Other cerebral palsy Plan: Continue wheelchair. Medications: New escitalopram oxalate 10 mg PO BEDTIME 90 tabs 1RF 90 days F41.9 - Anxiety disorder, unspecified Coding Level of Care Code Est Pt Level 4 (87834) Complex EM visit Add On G2211 Diagnoses Anxiety F41.9 Iron deficiency anemia due to chronic blood loss D50.0 Anemia type: iron deficiency Iron deficiency anemia type: chronic blood loss Chronic idiopathic constipation K59.04 Gastroesophageal reflux disease, unspecified whether esophagitis present K21.9 Esophagitis presence: esophagitis presence not specified Paraplegic cerebral palsy G80.8 Additional Codes KENN-7 Assessment Billing - KENN-7 Assessment Tool: KENN-7 Assessment 73424 ([id number]) Time Spent (min) 21
[2023-12-11 11:15] VITALS: BP 110/78; PULSE 10; O2SAT 96
== END 2023-12-11 11:30 | disposition home or self-care (01) ==
PROVIDERS: PCP Internal Medicine; Visit Provider Internal Medicine
DX: D50.0 Iron deficiency anemia secondary to blood loss (chronic) (principal); F41.9 Anxiety disorder, unspecified; K59.04 Chronic idiopathic constipation; G80.8 Other cerebral palsy; K21.9 Gastro-esophageal reflux disease without esophagitis
CPT/HCPCS: 96127; 99214; G2211

== ENCOUNTER 2024-03-19 09:23 | Outpatient (AMB) | payer OTHER, SELFPAY ==
--- NOTE | 2024-03-19 09:33 | A.OFFPC_ITS ---
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 Accompanied by: Self / Same As Patient Allergies Influenza Virus Vaccines Allergy (Severe, Verified 03/19/24 09:56) Anaphylaxis latex [LATEX] Allergy (Severe, Verified 03/19/24 09:56) ANAPHYLAXIS Sulfa (Sulfonamide Antibiotics) [SULFA (SULFONAMIDE ANTIBIOTICS)] Allergy (Severe, Verified 03/19/24 09:56) Anaphylaxis Medication List - Last Reconciled 03/19/24 by Micheline Carmichael MD alum-mag hydroxide-simeth 400-400-40 mg/5 mL (Mylanta Maximum Strength) 10 mL PO TID PRN baclofen 10 mg PO Q8H PRN bisacodyl 10 mg (2 x 5 mg) PO BEDTIME commode (bedside commode) As directed [compression stockings As directed] epinephrine 0.3 mg (0.3 mL) IM Q10M PRN 30 days escitalopram oxalate 20 mg PO DAILY famotidine (Pepcid) 40 mg PO BEDTIME PRN ferrous sulfate 325 mg PO TID lactulose 105 mL PO BEDTIME PRN linaclotide (Linzess) 290 mcg PO QAM [id number] 24,000-76,000 -120,000 unit (Creon) 1 cap PO QID metoclopramide HCl (Reglan) 10 mg PO QIDACHS naproxen 500 mg PO Q12H PRN oxybutynin chloride ER 10 mg PO Q12H rabeprazole (AcipHex) 20 mg PO BID [shower chair As directed] simethicone (Anti-Gas Ultra Strength) 180 mg PO TID Tobacco use date assessed: 07/18/23 Dental Screening Dental Screen Date: 03/19/24 Did you have a dental visit in the last 12 months?: No Did you have a dental problem in the last 6 months where you did not have access to dental care?: No Was dental information given to patient?: Patient has dentist HPI HPI Comments History of Present Illness Details This is a 43-year-old female with paraplegic cerebral palsy that comes for her physical exam. She is wheelchair dependent and does urine cath every 3 hours to void the urine. Mammogram done 2022 and she will ask for an appointment for another mammogram this year. Pap smear few years ago and will call OBGYN. Colonoscopy done 2021. Complains of right shoulder pain that radiates to the right elbow and would like to see arthritis treatment center. Has full range of motion in right shoulder. Has mild recurrent major depression stable with escitalopram. [facility] Medical History (Updated 03/19/24 @ 10:15 by Micheline Carmichael MD) Physical exam Leg edema Abnormal mammogram Iron deficiency anemia Early satiety Cerebral palsy History of gallstones Paraplegic cerebral palsy Paraplegic cerebral palsy COVID-19 vaccine series completed Wheelchair bound Family history of pancreatic cancer Leg edema Breast pain, right Neurogenic bladder Transverse myelitis Self-catheterizes urinary bladder Surgical History H/O major orthopedic surgery Hx of endoscopy Hx of colonoscopy History of bilateral tubal ligation History of Family History Father HTN (hypertension) Diabetes type 2, controlled Mother Pancreatic cancer Social History Household Members: Children Household Members Other:: minor children Housing: Apartment Are you 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 care companion to a significant other at home: Yes Do you presently have visiting nurse or other home services: Yes (PRIVATE INQUIRY AGENT 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 1. Little interest or pleasure in doing things: not at all 2. Feeling down, depressed, or hopeless: not at all 3. Trouble falling or staying asleep, or sleeping too much: not at all 4. Feeling tired or having little energy: nearly every day 5. Poor appetite or overeating: not at all 6. Feeling bad about yourself - or that you are a failure or have let yourself or your family down: not at all 7. Trouble concentrating on things, such as reading the newspaper or watching television: not at all 8. Moving or speaking so slowly that other people could have noticed. Or the opposite - being so fidgety or restless that you have been moving around a lot more than usual: not at all 9. Thoughts that you would be better off or of hurting yourself in some way: not at all Total score: 3 Depression Screening Interpretation: Positive Depression Screening Follow-up: Existing condition, In treatment and Follow-up Visit Requested Depression Screening Done: Yes [id number] - PHQ-9 Billing: Yes Source: Developed by Drs. Aneesh Randle, Elina Olmos, Andrew Rizzo and colleagues, with an educational carmen from [employer] Thrive Questionnaire Date Thrive assessed: 03/13/24 I am a: Patient What is your living situation today?: I have a steady place to live Within the past 12 months, did the food you bought not last and you didn't have the money to get more?: Sometimes True Within the past 12 months, did you worry whether your food would run out before you got money to buy more?: Often true Do you have trouble paying for medicines?: No Do you have trouble getting transportation to medical appointments?: No Do you have trouble paying your heating and electricity bill?: No Do you have trouble taking care of your child, family member or friend?: No Do you have trouble with day-to-day activities such as bathing, preparing meals, shopping, managing finances, etc.?: Yes Are you currently unemployed and looking for a job?: No Are you interested in more education?: No Please select the resources that you would like help with: None Currently or been in a relationship where the following occur: No concerns reported THRIVE Score: 2 AUDIT C Alcohol Use Questionnaire (AUDIT-C) 1. How often do you have a drink containing alcohol?: Never 3. How often do you have six or more drinks on one occasion?: Never Total Score: 0 KENN-7 AMB Questionnaire KENN-7 Date KENN - 7 assessed: 07/18/23 Feeling nervous, anxious, or on edge: 1 = Several days Not being able to stop or control worryin = Several days Worrying too much about different things: 1 = Several days Trouble relaxin = Several days Being so restless that it is hard to sit still: 0 = Not at all Becoming easily annoyed or irritable: 0 = Not at all Feeling afraid as if something awful might happen: 1 = Several days Total KENN-7 score (0-4 normal; 5-9 mild; 10-14 moderate; 15-21 severe): 5 Source: Developed by Drs. Aneesh Randle, Elina Olmos, Andrew Rizzo and colleagues, with an educational carmen from [employer] KENN-7 Assessment Billing KENN-7 Assessment Tool: KENN-7 Assessment 86617 Review of Systems Const All systems reviewed & are unremarkable except as noted in HPI and below Card Denies chest pain at rest, Denies chest pain with activity, Denies edema, Denies irregular heart rhythm, Denies claudication, Denies dyspnea, Denies dyspnea on exertion, Denies orthopnea, Denies paroxysmal nocturnal dyspnea and Denies slow heart rate Resp Denies cough, Denies dyspnea and Denies dyspnea on exertion Musc Denies abnormal gait, Denies atrophy, Denies deformity and Denies limited range of motion Neuro Denies abnormal gait and Denies lack of coordination Physical exam (Primary Care) Vital Signs: Last Vital Signs BP 126/78 03/19/24 09:36 Tobacco/Smoking Status: Tobacco use Status Tobacco use date assessed 07/18/23 03/19/24 09:35 Patient Tobacco Use Status Never used Tobacco 03/19/24 09:35 e-Cigarette/Vaping Use Never Used 03/19/24 09:35 PHQ-9: PHQ-9 Score PHQ-9: Total score 3 03/19/24 10:00 Depression Screening Interpretation: Positive Depression Screening Follow-up: Existing condition, In treatment and Follow-up Visit Requested Thrive Assessment: Date of Thrive Assessment Date Thrive assessed 03/13/24 03/19/24 09:35 Currently or been in a relationship where the following occur: No concerns reported Const Limitations: wheelchair HENMT Head: Yes normal to inspection, Yes normocephalic and Yes atraumatic Ears: external ears normal Eyes General: appearance normal, both eyes and all related structures Eyelids: Yes eyelids normal Conjunctivae: conjunctivae normal Neck Neck: Yes normal visual inspection and Yes supple Resp Effort & Inspection: normal respiratory effort Auscultation: clear to auscultation bilaterally Cardio Jugular venous distension: no JVD Rate: regular rate Rhythm: regular rhythm Heart sounds: S1 normal heart sound present and S2 normal heart sound present GI Inspection: Yes normal to inspection Palpation (GI): Soft to palpation and nontender Auscultation: normal bowel sounds Skin General skin exam: no rashes or lesions noted Neuro Cognition (Neuro): normal cognition Gait exam (Neuro): Assisted gait required Gait assisted method: wheelchair bound Motor exam (neuro): Abnormal motor strength present (5/5 upper limbs bilateral, 0/5 lower limbs bilateral) Psych Appearance: grossly normal Office Procedures Flu Questionnaire Does the patient have a severe egg allergy?: No Does the patient have severe life threatening allergies?: No Does the patient have a fever or illness today?: No Has the patient ever had Guillain-[place] Syndrome?: No Has the patient ever had any past reaction to a flu shot?: Yes Immunizations Fluarix Triv [id number] (PF) 45 mcg (15 mcg x 3)/0.5 mL IM syringe Performing Provider: Micheline Carmichael MD [facility] Documented (not given) by: ESTHER Sandoval on 03/19/24 09:40 Reason Not Given: Patient Refused Coding Level of Care Code Est Pt Level 3 (38247) Est Pt Prev Care 40-64y(34514) Diagnoses Physical exam Z00.00 Paraplegic cerebral palsy G80.8 Chronic right shoulder pain M25.511; G89.29 Chronicity: chronic Mild recurrent major depression F33.0 Additional Codes KENN-7 Assessment Billing - KENN-7 Assessment Tool: KENN-7 Assessment 32097 ([id number]) Time Spent (min) 34 Assessment & Plan Assessment & Plan (1) Physical exam: Code(s): Z00.00 - Encounter for general adult medical examination without abnormal findings Category: Medical Plan: Repeat in a year. (2) Paraplegic cerebral palsy: Code(s): G80.8 - Other cerebral palsy Category: Medical Plan: Continue wheelchair as needed. Continue urine catheterization every 3 hours. (3) Right shoulder pain: Code(s): M25.511 - Pain in right shoulder Category: Medical Qualifiers: Chronicity: chronic Qualified Code(s): M25.511 - Pain in right shoulder; G89.29 - Other chronic pain Plan: Referred to arthritis treatment center. (4) Mild recurrent major depression: Code(s): F33.0 - Major depressive disorder, recurrent, mild Category: Medical Plan: Continue escitalopram. Orders: Orders Influenza [id number] Immunization Today Z23 - Encounter for immunization Comprehensive [place]. Panel Fast Today Z00.00 - Encounter for general adult medical examination without abnormal findings Lipid Panel Today Z00.00 - Encounter for general adult medical examination without abnormal findings Referrals Rheumatology Referral G89.29 - Other chronic pain, M25.511 - Pain in right shoulder Medications: Refilled epinephrine 0.3 mg (0.3 mL) IM Q10M PRN 2 ea 0RF Anaphylaxis 30 days
[2024-03-19 09:36] VITALS: BP 126/78
== END 2024-03-19 10:08 | disposition home or self-care (01) ==
PROVIDERS: PCP Internal Medicine; Visit Provider Internal Medicine
DX: Z00.00 Encounter for general adult medical examination without abnormal findings (principal); G80.8 Other cerebral palsy; F33.0 Major depressive disorder, recurrent, mild; M25.511 Pain in right shoulder; G89.29 Other chronic pain

== ENCOUNTER → 2024-03-19 09:23 | Outpatient (BNVA) | payer OTHER, SELFPAY | PROVIDERS: PCP Internal Medicine; Visit Provider Internal Medicine | DX: Z00.00 Encounter for general adult medical examination without abnormal findings (principal); G80.8 Other cerebral palsy; G89.29 Other chronic pain; M25.511 Pain in right shoulder; F33.0 Major depressive disorder, recurrent, mild; Z79.899 Other long term (current) drug therapy; Z28.21 Immunization not carried out because of patient refusal | CPT/HCPCS: 90471; 96127; 99396 ==

== ENCOUNTER 2024-04-18 08:59 | Outpatient (REF) | payer OTHER, SELFPAY ==
[2024-04-18 10:24] LABS: Alanine Aminotransferase 13 U/L (0-31); Albumin Level 3.9 g/dL (3.5-5.0); Alkaline Phosphatase 89 U/L (39-117); Anion Gap 13 (12-20); Aspartate Amino Transferase 24 U/L (5-31); Bilirubin Total 0.3 mg/dL (0.0-1.0); Blood Urea Nitrogen 14 mg/dL (9-16); Calcium 9.2 mg/dL (8.4-10.2); Carbon Dioxide 23 mmol/L (22-29); Chloride 107 mmol/L (96-108); Cholesterol 172 mg/dL (<200); Estimated Glomerular Filt Rate > 60; Glucose Fasting 89 mg/dL (60-99); HDL Cholesterol 54 mg/dL (>40); LDL Cholesterol Calculated 96 mg/dL (<100); Potassium 3.8 mmol/L (3.3-5.1); Sodium 139 mmol/L (135-145); Total Protein 7.5 g/dL (6.5-8.0); Triglycerides 111 mg/dL (<150)
== END 2024-04-18 09:00 | disposition home or self-care (01) ==
LOC: HO.LAB 08:59
PROVIDERS: PCP Internal Medicine; Visit Provider Internal Medicine
DX: Z00.00 Encounter for general adult medical examination without abnormal findings (principal)
CPT/HCPCS: 36415; 80053; 80061

== ENCOUNTER 2024-09-06 09:52 | Outpatient (AMB) | payer OTHER, SELFPAY ==
[2024-09-06 09:59] VITALS: BP 131/81; PULSE 92; BMI 23.0
--- NOTE | 2024-09-06 09:59 | MHC.OFFVIS ---
Vital Signs 09/06/24 09:59 Height 5 ft 3 in Weight 130 lb BMI 23.0 BP 131/81 Blood Pressure Location Lt brachial Position Sitting Pulse 92 Comment Wt per pt Intake Visit Reasons: f/u Intake Note: Patient in office today in follow up of GERD. CC: Patient c/o GERD, epigastric pain, and constipation. Denies other GI symptoms. 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: No Accompanied by: Self / Same As Patient Allergies Influenza Virus Vaccines Allergy (Severe, Verified 09/06/24 10:01) Anaphylaxis latex [LATEX] Allergy (Severe, Verified 09/06/24 10:01) ANAPHYLAXIS Sulfa (Sulfonamide Antibiotics) [SULFA (SULFONAMIDE ANTIBIOTICS)] Allergy (Severe, Verified 09/06/24 10:01) Anaphylaxis HPI HPI f/u: Details: Assessment & Plan (1) Chronic idiopathic constipation: Comment: Paraplegic Code(s): K59.04 - Chronic idiopathic constipation Category: Medical (2) GERD (gastroesophageal reflux disease): Code(s): K21.9 - Gastro-esophageal reflux disease without esophagitis Category: Medical Qualifiers: Esophagitis presence: esophagitis presence not specified Qualified Code(s): K21.9 - Gastro-esophageal reflux disease without esophagitis (3) Erosive esophagitis: Code(s): K22.10 - Ulcer of esophagus without bleeding Category: Medical (4) Delayed gastric emptying: Code(s): K30 - Functional dyspepsia Category: Medical (5) Wheelchair bound: Comment: one person assist to transfer per patient Code(s): Z99.3 - Dependence on wheelchair Category: Medical (6) Gastritis: Comment: Mild chronic on 2019 EGD inactive by biopsy no H pylori Code(s): K29.70 - Gastritis, unspecified, without bleeding Category: Medical (7) Paraplegic cerebral palsy: Code(s): G80.8 - Other cerebral palsy Category: Medical Plan She says she has continues to do okay. She faces many obstacles in her general health including her mobility that effects the GI system. But she does feel that we have improved he condition since we started treatment. She still struggles with HB, but she has been through many high dose PPI's etc and her short staure seems to c/t this. She does not feel we need to change any of her GI regimen at this time. She continues on Reglan, AcipHex, Linzess, creon, simethicone, famotidine, lactulose and bisacodyl. (She has constant pain at mouth of my stomach and so we discuss Mylanta for this; carafate would not be good given her CIC. Again, she seems to have gallbladder dysfunction but isn't a good surgical candidate for cholecystectomy at this time.) ROV 6 mos. Medications: Refilled famotidine (Pepcid) 40 mg PO BEDTIME PRN 90 tabs 4RF heartburn linaclotide (Linzess) 290 mcg PO QAM 30 caps 6RF K59.04 - Chronic idiopathic constipation metoclopramide HCl (Reglan) 10 mg PO QIDACHS 120 tabs 6RF K30 - Functional dyspepsia bisacodyl 10 mg (2 x 5 mg) PO BEDTIME 60 tabs 6RF K59.04 - Chronic idiopathic constipation lyddiu-hdoiukkd-bekriin 24,000-76,000 -120,000 unit (Creon) 1 cap PO QID 120 caps 6RF K58.9 - Irritable bowel syndrome without diarrhea, K80.20 - Calculus of gallbladder without cholecystitis without obstruction rabeprazole (AcipHex) 20 mg PO BID 60 tabs 6RF K22.10 - Ulcer of esophagus without bleeding simethicone (Anti-Gas Ultra Strength) 180 mg PO TID 90 caps 6RF TODAY'S VISIT She continues on Reglan, AcipHex, Linzess, creon, simethicone, famotidine, lactulose and bisacodyl. (She has constant pain at mouth of my stomach and so we discuss Mylanta for this; carafate would not be good given her CIC. Again, she seems to have gallbladder dysfunction but isn't a good surgical candidate for cholecystectomy at this time.) The mylanta did not help the pain, but it not horrible but it persists. She continues to have epigastric pain, and since she had erosive esophagitis and we should check to see if it progressed to guide her therapy. ROV 6 mos. [facility] Medical History Physical exam Leg edema Abnormal mammogram Iron deficiency anemia Early satiety Cerebral palsy History of gallstones Paraplegic cerebral palsy Paraplegic cerebral palsy COVID-19 vaccine series completed Wheelchair bound Family history of pancreatic cancer Leg edema Breast pain, right Neurogenic bladder Transverse myelitis Self-catheterizes urinary bladder Surgical History H/O major orthopedic surgery Hx of endoscopy Hx of colonoscopy History of bilateral tubal ligation History of Family History Father HTN (hypertension) Diabetes type 2, controlled Mother Pancreatic cancer Social History Household Members: Children Household Members Other:: minor children Housing: Apartment Are you a 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 coronary care 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 to a significant other at home: Yes Do you presently have visiting nurse or other home services: Yes ([employer] services) Alcohol intake: never Comment: w/c bound due to cerebral palsy-needs one assist to transfer Patient Tobacco Use Status: Never used Tobacco e-Cigarette/Vaping Use: Never Used Second Hand Smoke Exposure: No Advance Directives Date on File: 02/28/20 service: No Current occupational status: disabled Sexual orientation: Straight/Heterosexual Gender identity: Female Cognitive needs: Yes Hearing needs: No Vision needs: No Female Reproductive History Menstrual Age of Menarche: 11 Review of Systems Const Denies fatigue, Denies fever(s), Denies night sweats, Denies poor appetite and Denies weight loss Eyes Reports requires corrective lenses ENT Reports Normal hearing present, Denies dental pain, Denies dysphagia, Denies hearing loss, Denies mouth pain, Denies odynophagia, Denies throat swelling, Denies tongue swelling and Reports other (Dentition adequate) GI Details: Denies abdominal pain, Denies melena, Denies bloating, Denies hematochezia, Denies constipation, Denies GI cramping, Denies dysphagia, Denies excessive flatus, Denies early satiety, Denies heartburn, Denies diarrhea, Denies nausea, Denies odynophagia, Denies vomiting and Denies hematemesis Skin/Breast Denies pruritus, Denies lesions, Denies rash and Denies jaundice Neuro Reports Normal hearing present and Denies Abnormal speech present Endo Denies fatigue Aller/Immun Denies throat swelling and Denies tongue swelling Physical Exam Vital Signs: Last Vital Signs Pulse 92 09/06/24 09:59 BP 131/81 09/06/24 09:59 BMI result Body Mass Index 23.0 Const General: cooperative, no acute distress, well developed and well groomed Nutritional Appearance: well nourished and obese Orientation/consciousness: oriented to person, oriented to place and oriented to time Limitations: No language barrier and wheelchair HEENT Head: Yes normocephalic and Yes atraumatic Eyes General: appearance normal, both eyes and all related structures Pupils: Equal, round and reactive pupils present Neck Neck: Yes normal visual inspection and Yes no lymphadenopathy Thyroid: Thyroid normal Resp Effort & Inspection: normal respiratory effort and able to speak in complete sentences Auscultation: clear to auscultation bilaterally Cardio Rate: regular rate Rhythm: regular rhythm Heart sounds: Normal, physiologic split S2 sound present Peripheral pulses: radial pulses present and posterior tibial pulses present GI Inspection: No distended, Yes Abdominal panniculus present and Yes obesity Palpation (GI): Soft to palpation, Tenderness to palpation present (GI) in the epigastrum, no guarding, not rigid and No hepatosplenomegaly present Percussion: Yes normal to percussion Auscultation: normal bowel sounds Rectal Exam - Female: deferred Skin General skin exam: no rashes or lesions noted, turgor normal, skin not dry, no jaundice, No spider nevi and no striae Rashes: no rashes Nails: normal Neuro General: oriented to person, oriented to place and oriented to time Cranial nerves: Yes Equal, round and reactive pupils present and Yes Normal hearing present Speech: No Abnormal speech present Extrem General: No clubbing, No cyanosis, Yes edema and Yes Dysmorphic Psych Appearance: grossly normal and well kempt Mental Status: mental status grossly normal Speech and movement: Normal speech and movement present Affect: normal affect Attitude: cooperative Thought process: Normal thought process present and not confabulating Thought content: Normal thought content present Insight: Fair insight present (Psych) Judgement: Fair judgement present (Psych) Assessment & Plan Assessment & Plan (1) Epigastric pain: Code(s): R10.13 - Epigastric pain Category: Medical (2) Pre-op examination: Code(s): Z01.818 - Encounter for other preprocedural examination Category: Medical (3) Delayed gastric emptying: Code(s): K30 - Functional dyspepsia Category: Medical (4) Erosive esophagitis: Code(s): K22.10 - Ulcer of esophagus without bleeding Category: Medical (5) GERD (gastroesophageal reflux disease): Code(s): K21.9 - Gastro-esophageal reflux disease without esophagitis Category: Medical Qualifiers: Esophagitis presence: esophagitis presence not specified Qualified Code(s): K21.9 - Gastro-esophageal reflux disease without esophagitis (6) Chronic idiopathic constipation: Comment: Paraplegic Code(s): K59.04 - Chronic idiopathic constipation Category: Medical (7) Wheelchair bound: Comment: one person assist to transfer per patient Code(s): Z99.3 - Dependence on wheelchair Category: Medical Plan She continues on Reglan, AcipHex, Linzess, creon, simethicone, famotidine, lactulose and bisacodyl. (She has constant pain at mouth of my stomach and so we discuss Mylanta for this; carafate would not be good given her CIC. Again, she seems to have gallbladder dysfunction but isn't a good surgical candidate for cholecystectomy at this time.) The mylanta did not help the pain, but it not horrible but it persists. She continues to have epigastric pain, and since she had erosive esophagitis and we should check to see if it progressed to guide her therapy. ROV 6 mos. Orders: Orders EGD - GI Use Only Today R10.13 - Epigastric pain Comprehensive Met. Panel Today Z01.818 - Encounter for other preprocedural examination Complete Blood Count Auto Diff Today Z01.818 - Encounter for other preprocedural examination Medications: Refilled lactulose 105 mL PO BEDTIME PRN 473 mL 6RF for constipation K59.01 - Slow transit constipation bisacodyl 10 mg (2 x 5 mg) PO BEDTIME 60 tabs 6RF K59.04 - Chronic idiopathic constipation alum-mag hydroxide-simeth 400-400-40 mg/5 mL (Mylanta Maximum Strength) 10 mL PO TID PRN 3,000 mL 6RF indigestion simethicone (Anti-Gas Ultra Strength) 180 mg PO TID 90 caps 2RF rabeprazole (AcipHex) 20 mg PO BID 60 tabs 6RF K22.10 - Ulcer of esophagus without bleeding metoclopramide HCl (Reglan) 10 mg PO QIDACHS 120 tabs 6RF K30 - Functional dyspepsia bcfavr-aqkwkwas-chcwgjf 24,000-76,000 -120,000 unit (Creon) 1 cap PO QID 120 caps 6RF K58.9 - Irritable bowel syndrome, unspecified, K80.20 - Calculus of gallbladder without cholecystitis without obstruction linaclotide (Linzess) 290 mcg PO QAM 30 caps 6RF K59.04 - Chronic idiopathic constipation famotidine (Pepcid) 40 mg PO BEDTIME PRN 30 tabs 6RF heartburn Coding Level of Care Code Est Pt Level 4 (73421) Diagnoses Epigastric pain R10.13 Pre-op examination Z01.818 Delayed gastric emptying K30 Erosive esophagitis K22.10 Gastroesophageal reflux disease, unspecified whether esophagitis present K21.9 Esophagitis presence: esophagitis presence not specified Chronic idiopathic constipation K59.04 Wheelchair bound Z99.3
== END 2024-09-06 11:12 | disposition home or self-care (01) ==
LOC: HO.HGI 09:53
PROVIDERS: PCP Internal Medicine; Visit Provider Nurse Practitioner
DX: K21.9 Gastro-esophageal reflux disease without esophagitis (principal); K30 Functional dyspepsia; K22.10 Ulcer of esophagus without bleeding; K59.04 Chronic idiopathic constipation
CPT/HCPCS: 99214

== ENCOUNTER → 2024-09-06 09:52 | Outpatient (BNVA) | payer OTHER, SELFPAY | PROVIDERS: PCP Internal Medicine; Visit Provider Nurse Practitioner | DX: Z01.818 Encounter for other preprocedural examination (principal); K21.9 Gastro-esophageal reflux disease without esophagitis; K59.04 Chronic idiopathic constipation; K58.1 Irritable bowel syndrome with constipation; K29.70 Gastritis, unspecified, without bleeding; K58.9 Irritable bowel syndrome, unspecified; K30 Functional dyspepsia; G80.8 Other cerebral palsy; R13.10 Dysphagia, unspecified; Z99.3 Dependence on wheelchair; K22.10 Ulcer of esophagus without bleeding | CPT/HCPCS: 99212 ==

== ENCOUNTER 2024-09-18 07:43 | Outpatient (AMB) | payer OTHER, SELFPAY ==
--- NOTE | 2024-09-18 07:54 | A.OFFPC_ITS ---
Vital Signs 09/18/24 08:00 BMI Reason not done Patient refused/unable BP 130/86 Blood Pressure Location Lt brachial Position Sitting Intake Visit Reasons: depression Intake Note: Patient here for a follow up depression Manager Personnel Selection Required: No Accompanied by: Self / Same As Patient Allergies Influenza Virus Vaccines Allergy (Severe, Verified 09/18/24 08:15) Anaphylaxis latex [LATEX] Allergy (Severe, Verified 09/18/24 08:15) ANAPHYLAXIS Sulfa (Sulfonamide Antibiotics) [SULFA (SULFONAMIDE ANTIBIOTICS)] Allergy (Severe, Verified 09/18/24 08:15) Anaphylaxis Medication List - Last Reconciled 09/18/24 by Micheline Carmichael MD alum-mag hydroxide-simeth 400-400-40 mg/5 mL (Mylanta Maximum Strength) 10 mL PO TID PRN baclofen 10 mg PO Q8H PRN bisacodyl 10 mg (2 x 5 mg) PO BEDTIME buspirone 10 mg PO TID commode (bedside commode) As directed [compression stockings As directed] epinephrine 0.3 mg (0.3 mL) IM Q10M PRN 30 days escitalopram oxalate 20 mg PO DAILY famotidine (Pepcid) 40 mg PO BEDTIME PRN ferrous sulfate 325 mg PO TID lactulose 105 mL PO BEDTIME PRN linaclotide (Linzess) 290 mcg PO QAM koywuq-lbrkjfvm-fuoqaya 24,000-76,000 -120,000 unit (Creon) 1 cap PO QID metoclopramide HCl (Reglan) 10 mg PO QIDACHS naproxen 500 mg PO Q12H PRN oxybutynin chloride ER 10 mg PO Q12H rabeprazole (AcipHex) 20 mg PO BID [shower chair As directed] simethicone (Anti-Gas Ultra Strength) 180 mg PO TID Tobacco use date assessed: 09/18/24 Dental Screening Dental Screen Date: 09/18/24 Did you have a dental visit in the last 12 months?: No Did you have a dental problem in the last 6 months where you did not have access to dental care?: No Was dental information given to patient?: Patient declined HPI HPI Comments History of Present Illness Details The patient is a 44-year-old female presenting for follow-up on chronic medical conditions and management of medications. Her main concerns include major depressive disorder and anxiety disorder, both managed with medication. Laboratory results for hyperlipidemia were normal, suggesting effective management or no immediate concerns. She experiences chronic constipation, managed with bisacodyl and lactulose, and is aware of an ongoing risk of anemia, addressed by taking iron supplements thrice daily. Cerebral palsy significantly affects her mobility, necessitating the use of an electric wheelchair. Current efforts include reassessment for customizations and evaluations every five years, with the next due soon. The patient has a history of heartburn, controlled with Pepcid, and urinary incontinence, managed with oxybutynin. She underwent a mammogram in 2022, and there is an order for endoscopy pending. Musculoskeletal discomfort is associated with her rheumatoid arthritis, with chronic body pain reported. The patient is proactive in her health management, understanding the significance of her involvement. [facility] Medical History Physical exam Leg edema Abnormal mammogram Iron deficiency anemia Early satiety Cerebral palsy History of gallstones Paraplegic cerebral palsy Paraplegic cerebral palsy COVID-19 vaccine series completed Wheelchair bound Family history of pancreatic cancer Leg edema Breast pain, right Neurogenic bladder Transverse myelitis Self-catheterizes urinary bladder Surgical History H/O major orthopedic surgery Hx of endoscopy Hx of colonoscopy History of bilateral tubal ligation History of Family History Father HTN (hypertension) Diabetes type 2, controlled Mother Pancreatic cancer Social History Household Members: Children Household Members Other:: minor children Housing: Apartment 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 at 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: Yes Do you presently have visiting nurse or other home services: Yes ([employer] 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 1. Little interest or pleasure in doing things: not at all 2. Feeling down, depressed, or hopeless: not at all 3. Trouble falling or staying asleep, or sleeping too much: not at all 4. Feeling tired or having little energy: not at all 5. Poor appetite or overeating: not at all 6. Feeling bad about yourself - or that you are a failure or have let yourself or your family down: not at all 7. Trouble concentrating on things, such as reading the newspaper or watching television: not at all 8. Moving or speaking so slowly that other people could have noticed. Or the opposite - being so fidgety or restless that you have been moving around a lot more than usual: not at all 9. Thoughts that you would be better off or of hurting yourself in some way: not at all Total score: 0 Depression Screening Interpretation: Negative Depression Screening Done: Yes 85769 - PHQ-9 Billing: Yes Source: Developed by Drs. Aneesh Randle, Elina Olmos, Andrew Rizzo and colleagues, with an educational carmen from [employer]. Thrive Questionnaire Date Thrive assessed: 09/18/24 I am a: Patient What is your living situation today?: I have a steady place to live Within the past 12 months, did the food you bought not last and you didn't have the money to get more?: Sometimes True Within the past 12 months, did you worry whether your food would run out before you got money to buy more?: Often true Do you have trouble paying for medicines?: No Do you have trouble getting transportation to medical appointments?: No Do you have trouble paying your heating and electricity bill?: No Do you have trouble taking care of your child, family member or friend?: No Do you have trouble with day-to-day activities such as bathing, preparing meals, shopping, managing finances, etc.?: Yes Are you currently unemployed and looking for a job?: No Are you interested in more education?: No Please select the resources that you would like help with: None Currently or been in a relationship where the following occur: No concerns reported THRIVE Score: 2 AUDIT C Alcohol Use Questionnaire (AUDIT-C) 1. How often do you have a drink containing alcohol?: Never Total Score: 0 Score Reviewed/Action Taken: No KENN-7 AMB Questionnaire KENN-7 Date KENN - 7 assessed: 09/18/24 Feeling nervous, anxious, or on edge: 0 = Not at all Not being able to stop or control worryin = Not at all Worrying too much about different things: 0 = Not at all Trouble relaxin = Not at all Being so restless that it is hard to sit still: 0 = Not at all Becoming easily annoyed or irritable: 0 = Not at all Feeling afraid as if something awful might happen: 0 = Not at all Total KENN-7 score (0-4 normal; 5-9 mild; 10-14 moderate; 15-21 severe): 0 Source: Developed by Drs. Aneesh Randle, Elina Olmos, Andrew Rizzo and colleagues, with an educational carmen from [employer]. KENN-7 Assessment Billing KENN-7 Assessment Tool: KENN-7 Assessment 82244 Review of Systems Const All systems reviewed & are unremarkable except as noted in HPI and below Card Denies chest pain at rest, Denies chest pain with activity, Denies edema, Denies irregular heart rhythm, Denies claudication, Denies dyspnea, Denies dyspnea on exertion, Denies orthopnea, Denies paroxysmal nocturnal dyspnea and Denies slow heart rate Resp Denies cough, Denies dyspnea and Denies dyspnea on exertion GI Denies abdominal pain, Denies change in bowel habits, Reports constipation, Denies excessive flatus, Denies nausea and Denies vomiting Reports urinary incontinence Musc Reports back pain Neuro Denies lack of coordination Physical exam (Primary Care) Vital Signs: Last Vital Signs BP 130/86 09/18/24 08:00 Tobacco/Smoking Status: Tobacco use Status Tobacco use date assessed 09/18/24 09/18/24 08:02 Patient Tobacco Use Status Never used Tobacco 09/18/24 07:59 e-Cigarette/Vaping Use Never Used 09/18/24 07:59 PHQ-9: PHQ-9 Score PHQ-9: Total score 0 09/18/24 07:59 Depression Screening Interpretation: Negative Thrive Assessment: Date of Thrive Assessment Date Thrive assessed 09/18/24 09/18/24 07:59 Currently or been in a relationship where the following occur: No concerns reported Const General: cooperative Limitations: wheelchair Resp Effort & Inspection: normal respiratory effort Auscultation: clear to auscultation bilaterally Cardio Jugular venous distension: no JVD Rate: regular rate Rhythm: regular rhythm Heart sounds: S1 normal heart sound present and S2 normal heart sound present Neuro Other: paraplegia Psych Appearance: grossly normal Coding Level of Care Code Est Pt Level 4 (29420) Complex EM visit Add On G2211 Diagnoses Paraplegic cerebral palsy G80.8 Mild recurrent major depression F33.0 Anxiety F41.9 Gastroesophageal reflux disease, unspecified whether esophagitis present K21.9 Esophagitis presence: esophagitis presence not specified Iron deficiency anemia due to chronic blood loss D50.0 Anemia type: iron deficiency Iron deficiency anemia type: chronic blood loss Additional Codes PHQ-9 - 62820 - PHQ-9 Billing: Yes ([id number]) KENN-7 Assessment Billing - KENN-7 Assessment Tool: KENN-7 Assessment 99488 ([id number]) Time Spent (min) 23 Assessment & Plan Assessment & Plan (1) Paraplegic cerebral palsy: Code(s): G80.8 - Other cerebral palsy Category: Medical (2) Mild recurrent major depression: Code(s): F33.0 - Major depressive disorder, recurrent, mild Category: Medical (3) Anxiety: Code(s): F41.9 - Anxiety disorder, unspecified Category: Medical (4) GERD (gastroesophageal reflux disease): Code(s): K21.9 - Gastro-esophageal reflux disease without esophagitis Category: Medical Qualifiers: Esophagitis presence: esophagitis presence not specified Qualified Code(s): K21.9 - Gastro-esophageal reflux disease without esophagitis (5) Anemia: Code(s): D64.9 - Anemia, unspecified Category: Medical Qualifiers: Anemia type: iron deficiency Iron deficiency anemia type: chronic blood loss Qualified Code(s): D50.0 - Iron deficiency anemia secondary to blood loss (chronic) Plan The medication regimen for major depressive disorder remains unchanged, continuing escitalopram 20 mg due to effective management. Anxiety symptoms are managed with ongoing buspirone. Hyperlipidemia control indicates no current exacerbation, with routine monitoring advised. Chronic constipation management with bisacodyl and lactulose will persist, and iron supplementation for anemia remains requisite. Hematologic reassessment planned in subsequent lab tests. Cerebral palsy-related wheelchair issues are being addressed by evaluation at [facility]. Pepcid for heartburn and oxybutynin for urinary incontinence will be sustained. Annual mammogram planning is reaffirmed. The pending endoscopy will further elucidate gastrointestinal conditions. Discussions are ongoing for rheumatoid arthritis-related musculoskeletal pain. Follow-up is scheduled in March, incorporating fasting laboratories into care continuation. Patient was informed and verbally consented to the use of an ambient scribe for clinic note documentation during this visit. I discussed with the patient the effective control of her major depressive disorder with escitalopram and the continuation of buspirone for anxiety management. We reviewed recent labs indicating stable cholesterol, glucose, and kidney functions, and I advised retaining the current therapeutic strategy. Dietary management of constipation with lactulose and medication support with bisacodyl was reaffirmed. Our conversation included plans to monitor anemia, ensuring iron supplements are taken thrice daily. The patient was informed about the recurring five-year assessments required for her electric wheelchair due to cerebral palsy and the importance of regular customization at [facility]. We acknowledged effective current control of heartburn and urinary incontinence with Pepcid and oxybutynin, respectively. I recommended scheduling an annual mammogram, reaffirming the importance of routine checks, and we discussed completing a pending endoscopy to evaluate gastrointestinal symptoms thoroughly. The patient comprehends the proactive role in managing her multi-faceted healthcare needs, and follow-up is arranged for March. Orders: Orders Complete Blood Count Auto Diff Today D64.9 - Anemia, unspecified IRON PROFILE Today D64.9 - Anemia, unspecified Vitamin B12 and Folate 7 Months E53.8 - Deficiency of other specified B group vitamins Comprehensive [place]. Panel Fast 7 Months G89.29 - Other chronic pain, M25.512 - Pain in left shoulder Lipid Panel 7 Months E78.5 - Hyperlipidemia, unspecified Vitamin D 25-OH Total 7 Months E55.9 - Vitamin D deficiency, unspecified Complete Blood Count Auto Diff 7 Months D64.9 - Anemia, unspecified IRON PROFILE 7 Months D64.9 - Anemia, unspecified Referrals Physical Medicine and Rehabilitation Referral G80.8 - Other cerebral palsy Patient Instructions: - Continue taking escitalopram 20 mg and buspirone as prescribed. - Use bisacodyl and lactulose as needed for constipation. - Take iron supplements three times a day for anemia. - Schedule labs as per plan in March. - Attend wheelchair evaluation at [facility]. - Use Pepcid for heartburn and oxybutynin for urinary issues as directed. - Ensure annual mammogram scheduling. - Complete endoscopy when scheduled. - Return for follow-up in March, or sooner if symptoms worsen.
[2024-09-18 08:00] VITALS: BP 130/86
== END 2024-09-18 08:24 | disposition home or self-care (01) ==
LOC: HO.HMCH 07:44
PROVIDERS: PCP Internal Medicine; Visit Provider Internal Medicine
DX: G80.8 Other cerebral palsy (principal); F33.0 Major depressive disorder, recurrent, mild; F41.9 Anxiety disorder, unspecified; K21.9 Gastro-esophageal reflux disease without esophagitis; D50.0 Iron deficiency anemia secondary to blood loss (chronic)

== ENCOUNTER → 2024-09-18 07:43 | Outpatient (BNVA) | payer OTHER, SELFPAY | PROVIDERS: PCP Internal Medicine; Visit Provider Internal Medicine | DX: F33.0 Major depressive disorder, recurrent, mild (principal); F41.9 Anxiety disorder, unspecified; K21.9 Gastro-esophageal reflux disease without esophagitis; D50.0 Iron deficiency anemia secondary to blood loss (chronic); G80.8 Other cerebral palsy; Z79.899 Other long term (current) drug therapy | CPT/HCPCS: 96127; 99212 ==

== ENCOUNTER 2024-12-30 08:15 | Outpatient (RCR) | payer OTHER, SELFPAY ==
[2024-12-27 08:21] VITALS: BP 120/84; PULSE 89; RESP 16; TEMP 36.6; O2SAT 98
[2024-12-30 08:16] VITALS: BP 119/86; PULSE 109; RESP 16; TEMP 36.6; O2SAT 97
== END 2024-12-30 09:18 | disposition home or self-care (01) ==
LOC: HO.INF 08:15
PROVIDERS: Visit Provider Internal Medicine Medical Oncology
DX: D50.9 Iron deficiency anemia, unspecified (principal)
CPT/HCPCS: 96365; 96374; J1439

== ENCOUNTER 2025-03-31 07:29 | Outpatient (AMB) | payer OTHER, SELFPAY ==
[2025-03-31 07:31] VITALS: BP 122/68; PULSE 101; O2SAT 98
--- NOTE | 2025-03-31 07:31 | A.OFFPC_ITS ---
Vital Signs 03/31/25 07:31 Height 5 ft 3 in BMI Reason not done Patient refused/unable BP 122/68 Blood Pressure Location Lt brachial Position Sitting Pulse 101 H Pulse Source Pulse Oximeter Pulse Oximetry (%) 98 Oxygen Delivery Method Room Air Intake Visit Reasons: annual exam High Voltage Electrician Required: No Accompanied by: Self / Same As Patient Allergies Influenza Virus Vaccines Allergy (Severe, Verified 03/31/25 07:41) Anaphylaxis latex (LATEX) Allergy (Severe, Verified 03/31/25 07:41) ANAPHYLAXIS Sulfa (Sulfonamide Antibiotics) (SULFA (SULFONAMIDE ANTIBIOTICS)) Allergy (Severe, Verified 03/31/25 07:41) Anaphylaxis Medication List - Last Reconciled 03/31/25 by Micheline Carmichael MD alum-mag hydroxide-simeth 400-400-40 mg/5 mL (Mylanta Maximum Strength) 10 mL PO TID PRN baclofen 10 mg PO Q8H PRN bisacodyl 10 mg (2 x 5 mg) PO BEDTIME buspirone 10 mg PO TID commode (bedside commode) As directed [compression stockings As directed] epinephrine 0.3 mg (0.3 mL) IM Q10M PRN 30 days escitalopram oxalate 20 mg PO DAILY famotidine (Pepcid) 40 mg PO BEDTIME PRN ferrous sulfate 325 mg PO TID lactulose 105 mL PO BEDTIME PRN linaclotide (Linzess) 290 mcg PO QAM tmdmeg-ejhjppsn-jurvbqz (pork) 24,000-76,000 -120,000 unit (Creon) 1 cap PO QID metoclopramide HCl (Reglan) 10 mg PO QIDACHS naproxen 500 mg PO Q12H PRN oxybutynin chloride ER 10 mg PO Q12H rabeprazole (AcipHex) 20 mg PO DAILY [shower chair As directed] simethicone (Anti-Gas Ultra Strength) 180 mg PO TID Tobacco use date assessed: 09/18/24 Dental Screening Dental Screen Date: 09/18/24 HPI HPI Comments History of Present Illness Details The patient is a 44-year-old female presenting for a physical exam. She has a history of cerebral palsy and is wheelchair-bound with no range of motion in her legs. She also has a history of a spinal cord injury from childhood. Past surgical history includes two C-sections with a subsequent tubal ligation. An upper endoscopy was performed this year, and a colonoscopy in 2021 revealed a hyperplastic polyp. Family history is positive for a father with diabetes and high blood pressure, and a mother who from pancreatic cancer. The patient does not smoke or drink alcohol. Regarding health screenings, her last mammogram was in 2022, and her last tetanus shot was 16 years ago. The date of her last Pap smear is unknown. Recent labs showed good kidney function, blood sugar, and liver enzymes, but cholesterol was not checked. - Mammogram: The patient's last mammogra m was in 2022, and she is scheduled for her next one tomorrow. - Pap smear: Due for a Pap smear, which will be performed. - Tdap vaccine: Last dose was 16 years a go; she is due and will receive it t trupti. - Colonoscopy: Her last colonoscopy in showed a hyperplastic polyp, and the next is due in 2026. - Laboratory screening: Fasting labs makayla l be ordered to check cholesterol, as well as repeat sugar, kidney, and liver function tests. [facility] Medical History (Updated 03/31/25 @ 07:59 by Micheline Carmichael MD) Mild recurrent major depression Physical exam Leg edema Abnormal mammogram Iron deficiency anemia Early satiety Cerebral palsy History of gallstones Paraplegic cerebral palsy Paraplegic cerebral palsy COVID-19 vaccine series completed Wheelchair bound Family history of pancreatic cancer Leg edema Breast pain, right Neurogenic bladder Transverse myelitis Self-catheterizes urinary bladder Surgical History H/O major orthopedic surgery Hx of endoscopy Hx of colonoscopy History of bilateral tubal ligation History of Family History Father HTN (hypertension) Diabetes type 2, controlled Mother Pancreatic cancer Social History Household Members: Children Household Members Other:: minor children Housing: Apartment Are you a primary director of career services to a significant other at home: Yes Do you presently have visiting nurse or other home services: Yes ([employer] SPINDLE OPERATOR services) Alcohol intake: never Comment: w/c bound due to cerebral palsy-needs one assist to transfer Patient Tobacco Use Status: Never used Tobacco Tobacco use type: Cigarette e-Cigarette/Vaping Use: Never Used Second Hand Smoke Exposure: No Advance Directives Date on File: 02/28/20 service: No Current occupational status: disabled Sexual orientation: Straight/Heterosexual Gender identity: Female Cognitive needs: Yes Hearing needs: No Vision needs: No Female Reproductive History Menstrual Age of Menarche: 11 Questionnaire PHQ-9 Over the last 2 weeks, how often have you been bothered by any of the following problems? 1. Little interest or pleasure in doing things: not at all 2. Feeling down, depressed, or hopeless: not at all 3. Trouble falling or staying asleep, or sleeping too much: not at all 4. Feeling tired or having little energy: more than half the days 5. Poor appetite or overeating: not at all 6. Feeling bad about yourself - or that you are a failure or have let yourself or your family down: not at all 7. Trouble concentrating on things, such as reading the newspaper or watching television: not at all 8. Moving or speaking so slowly that other people could have noticed. Or the opposite - being so fidgety or restless that you have been moving around a lot more than usual: not at all 9. Thoughts that you would be better off or of hurting yourself in some way: not at all Total score: 2 Depression Screening Interpretation: Negative Depression Screening Done: Yes 14317 - PHQ-9 Billing: Yes Source: Developed by Drs. Aneesh Randle, Elina Olmos, Andrew Rizzo and colleagues, with an educational carmen from [employer]. Thrive Questionnaire Date Thrive assessed: 09/18/24 I am a: Patient What is your living situation today?: I have a steady place to live Within the past 12 months, did the food you bought not last and you didn't have the money to get more?: Sometimes True Within the past 12 months, did you worry whether your food would run out before you got money to buy more?: Sometimes True Do you have trouble paying for medicines?: No Do you have trouble getting transportation to medical appointments?: No Do you have trouble paying your heating and electricity bill?: No Do you have trouble taking care of your child, family member or friend?: No Do you have trouble with day-to-day activities such as bathing, preparing meals, shopping, managing finances, etc.?: Yes Are you currently unemployed and looking for a job?: No Are you interested in more education?: No Please select the resources that you would like help with: None Currently or been in a relationship where the following occur: No concerns reported THRIVE Score: 2 AUDIT C Alcohol Use Questionnaire (AUDIT-C) 1. How often do you have a drink containing alcohol?: Never 3. How often do you have six or more drinks on one occasion?: Never Total Score: 0 KENN-7 AMB Questionnaire KENN-7 Date KENN - 7 assessed: 09/18/24 Feeling nervous, anxious, or on edge: 1 = Several days Not being able to stop or control worryin = Several days Worrying too much about different things: 0 = Not at all Trouble relaxin = Not at all Being so restless that it is hard to sit still: 0 = Not at all Becoming easily annoyed or irritable: 0 = Not at all Feeling afraid as if something awful might happen: 0 = Not at all Total KENN-7 score (0-4 normal; 5-9 mild; 10-14 moderate; 15-21 severe): 2 Source: Developed by Drs. Aneesh Randle, Elina Olmos, Andrew Rizzo and colleagues, with an educational carmen from [employer]. KENN-7 Assessment Billing KENN-7 Assessment Tool: KENN-7 Assessment 23877 Review of Systems Const All systems reviewed & are unremarkable except as noted in HPI and below Card Denies chest pain at rest, Denies chest pain with activity, Denies edema, Denies irregular heart rhythm, Denies claudication, Denies dyspnea, Denies dyspnea on exertion, Denies orthopnea, Denies paroxysmal nocturnal dyspnea and Denies slow heart rate Resp Denies cough, Denies dyspnea and Denies dyspnea on exertion GI Denies abdominal pain, Denies change in bowel habits, Denies excessive flatus, Denies nausea and Denies vomiting Denies urinary incontinence, Denies urinary hesitancy and Denies urinary urgency Musc Denies abnormal gait, Denies atrophy, Denies deformity and Denies limited range of motion Skin/Breast Denies bleeding lesions, Denies changing lesions and Denies rash Neuro Denies abnormal gait and Denies lack of coordination Physical exam (Primary Care) Vital Signs: Last Vital Signs Pulse 101 H 03/31/25 07:31 BP 122/68 03/31/25 07:31 Pulse Ox 98 03/31/25 07:31 Oxygen Delivery Method Room Air 03/31/25 07:31 Tobacco/Smoking Status: Tobacco use Status Tobacco use date assessed 09/18/24 03/31/25 07:37 Patient Tobacco Use Status Never used Tobacco 03/31/25 07:37 Tobacco use type Cigarette 03/31/25 07:37 e-Cigarette/Vaping Use Never Used 03/31/25 07:37 PHQ-9: PHQ-9 Score PHQ-9: Total score 2 03/31/25 07:44 Depression Screening Interpretation: Negative Thrive Assessment: Date of Thrive Assessment Date Thrive assessed 09/18/24 03/31/25 07:37 Currently or been in a relationship where the following occur: No concerns reported Const Limitations: wheelchair HENMT Head: Yes normal to inspection, Yes normocephalic and Yes atraumatic Ears: external ears normal Mouth: lip normal Eyes General: appearance normal, both eyes and all related structures Eyelids: Yes eyelids normal Conjunctivae: conjunctivae normal Neck Neck: Yes normal visual inspection and Yes supple Resp Effort & Inspection: normal respiratory effort Auscultation: clear to auscultation bilaterally Cardio Jugular venous distension: no JVD Rate: regular rate Rhythm: regular rhythm Heart sounds: S1 normal heart sound present and S2 normal heart sound present GI Inspection: Yes normal to inspection Palpation (GI): Soft to palpation and nontender Auscultation: normal bowel sounds Skin General skin exam: no rashes or lesions noted Neuro General: no focal motor deficits Psych Appearance: grossly normal Immunizations Boostrix Tdap 2.5 Lf unit-8 mcg-5 Lf/0.5 mL intramuscular syringe Performing Provider: Micheline Carmichael MD Performing Location: [facility] [place] [facility] Administered by: Terri Rodriguez CMA on 03/31/25 07:56 Dose Route Admin Location Dispensed Lot Number Expiration Date [facility] Campaign Specialist 0.5 mL IM Left Deltoid 0.5 mL [id number] 08/22/27 90212-402-52 [employer] Total Dispensed Waste 0.5 mL 0 % VIS Given Date VIS Provided VIS Publication Date 03/31/25 Single Vaccine 21 Eligibility Eligibility Date Funding Source Not [facility] Eligible 03/31/25 Private Coding Level of Care Code Est Pt Prev Care 40-64y(08490) Diagnoses Physical exam Z00.00 Paraplegic cerebral palsy G80.8 Additional Codes KENN-7 Assessment Billing - KENN-7 Assessment Tool: KENN-7 Assessment 18534 ([id number]) PHQ-9 - 93790 - PHQ-9 Billing: Yes ([id number]) Time Spent (min) 30 Assessment & Plan Assessment & Plan (1) Physical exam: Code(s): Z00.00 - Encounter for general adult medical examination without abnormal findings Category: Medical (2) Paraplegic cerebral palsy: Code(s): G80.8 - Other cerebral palsy Category: Medical Plan Plan 1. Encounter for general adult medical examination without abnormal findings Z00.00 The patient is in for a physical exam. A Pap smear will be performed during the visit. The patient is scheduled for a mammogram tomorrow. A Tdap vaccine will be administered today, as it is due. Fasting labs will be ordered to check cholesterol and repeat kidney, liver, and sugar levels. The patient will follow up in 6 months. 2. Cerebral palsy, unspecified G80.9 HCC 74 The patient's cerebral palsy is a chronic condition. She is wheelchair-bound with no range of motion in her legs. No new interventions were discussed for this condition. 3. History Of Colonic Polyps The patient has a history of a hyperplastic polyp found on a 2021 colonoscopy. Per guidelines, her next surveillance colonoscopy is due in 2026. Orders: Orders Lipid Panel Today Z00.00 - Encounter for general adult medical examination without abnormal findings Comprehensive [place]. Panel Fast Today Z00.00 - Encounter for general adult medical examination without abnormal findings TDaP Immunization Today Z23 - Encounter for immunization Referrals WOODWORKING CRAFTSMAN Referral Z12.4 - Encounter for screening for malignant neoplasm of cervix
--- OUTSIDE RECORDS SUMMARY | 2025-03-31 07:32 | XMS_ITS | Clinical Summary ---
Author Organization 175 [facility] Address [address] [place] [address] Phone Care Team Providers Care Rug Frame Mounter Name Role Phone Micheline Carmichael MD Primary Care Provider [phone] Social History Tobacco Use Types Packs/Day Years Used Date Smoking Tobacco: Never Assessed Comments Unknown Sex and Gender Information Value Date Recorded Sex Assigned at Not on file Legal Sex Female 2:35 PM EDT Gender Identity Not on file Sexual Orientation Not on file Plan of Treatment Health Maintenance Due Date Last Done Comments Breast Cancer Screening 1981 DTaP,Tdap,and Td Vaccines (1 - Tdap) 2000 Hepatitis B Vaccines (1 of 3 - 19+ 3-dose series) 2000 Cervical Cancer Screening: P ap Smear 2002 HPV Vaccines (1 - 3-dose SCD M series) 2008 Depression Screening 05/29/2024 HIV Screening 09/20/2024 Hepatitis C Screening 09/20/2024 Social Influencers of Health Screening 09/20/2024 COVID-19 Vaccine ( - 2023-2 5 season) 2025 Influenza Vaccine (#1) 2025 RSV Immunization Adult Patie nts (1 - 1-dose 75+ series) 2056 HIB Vaccines Aged Out No longer eligi ble based on patient's age to complete this topic Hepatitis A Vaccines Aged Out No long er eligible based on patient's age to complete this topic IPV Vaccines Aged Out No longer eligi ble based on patient's age to complete this topic MMR Vaccines Aged Out No longer eligi ble based on patient's age to complete this topic Meningococcal ACWY Vaccine Aged Out N o longer eligible based on patient's age to complete this topic Meningococcal B Vaccine Aged Out No l onger eligible based on patient's age to complete this topic Pneumococcal Vaccine: Pediat rics (0 to 5 Years) and At-Risk Patients (6 to 49 Years) Aged Out No longer eligible b ased on patient's age to complete this topic RSV Immunization Patients Un linda 20 months Aged Out No longer eligible b ased on patient's age to complete this topic Varicella Vaccines Aged Out No longer eligible based on patient's age to complete this topic Insurance [facility] Care Teams Rug Frame Mounter Relationship Specialty Start Date End Date Micheline Carmichael MD [address] [place] [address] , [address] [facility] D/B/A: [facility] [place], [place] PCP - General Internal Medicine 09/23/24
== END 2025-03-31 08:04 | disposition home or self-care (01) ==
LOC: HO.HMCH 07:30
PROVIDERS: PCP Internal Medicine; Visit Provider Internal Medicine
DX: Z00.00 Encounter for general adult medical examination without abnormal findings (principal); G80.8 Other cerebral palsy; Z23 Encounter for immunization

== ENCOUNTER → 2025-03-31 07:29 | Outpatient (BNVA) | payer OTHER, SELFPAY | PROVIDERS: PCP Internal Medicine; Visit Provider Internal Medicine | DX: Z00.00 Encounter for general adult medical examination without abnormal findings (principal); G80.8 Other cerebral palsy; Z99.3 Dependence on wheelchair; Z23 Encounter for immunization | CPT/HCPCS: 90471; 90715; 96127; 99396 ==

== ENCOUNTER 2025-04-10 12:21 | Outpatient (REF) | payer OTHER, SELFPAY ==
[2025-04-10 12:42] LABS: MANUAL DIFF FLAG NO
[2025-04-10 12:45] LABS: Hematocrit 42.3 % (37.0-47.0); Hemoglobin 13.4 g/dl (12.0-16.0); Imm Gran Abs Auto 0.05 X10*3/uL (0.00-0.03); Imm Gran Pct Auto 0.4 % (0.0-0.4); Lymphocytes Absolute Auto 2.4 X10*3/uL (1.2-4.9); Mean Corpuscular HGB Conc 31.7 g/dl (31.0-35.0); Mean Corpuscular Hemoglobin 27.9 pg (27.0-33.0); Mean Corpuscular Volume 88.1 fL (80.0-98.0); NRBC Abs Auto 0.000 X10*3/uL (0.0-0.012); NRBC Pct Auto 0.0 /100WBC (0.0-0.2); Platelet Count 379 X10*3/uL (160-400); Red Blood Count 4.80 X10*6/uL (4.20-5.50); White Blood Count 12.7 X10*3/uL (4.8-10.8)
[2025-04-10 13:47] LABS: Alanine Aminotransferase 14 U/L (0-31); Albumin Level 4.7 g/dL (3.5-5.0); Alkaline Phosphatase 116 U/L (39-117); Anion Gap 12 (12-20); Aspartate Amino Transferase 26 U/L (5-31); Blood Urea Nitrogen 15 mg/dL (9-16); Calcium 9.4 mg/dL (8.4-10.2); Carbon Dioxide 23 mmol/L (22-29); Chloride 110 mmol/L (96-108); Cholesterol 193 mg/dL (<200); Estimated Glomerular Filt Rate > 60; HDL Cholesterol 48 mg/dL (>40); Iron 84 mcg/dL (30-160); Percent Iron Saturation 32 % (15-50); Potassium 3.8 mmol/L (3.3-5.1); Sodium 141 mmol/L (135-145); Total Iron Binding Capacity 262 mcg/dL (228-428); Total Protein 8.3 g/dL (6.5-8.0); Triglycerides 173 mg/dL (<150); Unsaturated Iron Binding 178 ug/dL
[2025-04-10 14:26] LABS: Folate 9.1 ng/mL (> or = 4.0); Vitamin B12 149 pg/mL (200-900)
--- OUTSIDE RECORDS SUMMARY | 2025-04-10 15:32 | XMS_ITS | Clinical Summary ---
Author Organization 175 [facility] Address [address] [place] [address] Phone Care Team Providers Care Terrazzo Journeyman Name Role Phone Micheline Carmichael MD Primary Care Provider [phone] Social History Tobacco Use Types Packs/Day Years [...] patient's age to complete this topic Insurance [facility] [place] [address] Care Teams Terrazzo Journeyman Relationship Specialty Start Date End Date Micheline Carmichael MD [address] [place] [address] , [address] [facility] D/B/A: [facility] [place], [place] PCP - General Internal Medicine 09/23/24
== END 2025-04-10 12:22 | disposition home or self-care (01) ==
LOC: HO.LAB 12:21
PROVIDERS: PCP Internal Medicine; Visit Provider Internal Medicine
DX: Z00.00 Encounter for general adult medical examination without abnormal findings (principal); D64.9 Anemia, unspecified; M25.512 Pain in left shoulder; G89.29 Other chronic pain; E55.9 Vitamin D deficiency, unspecified; E53.8 Deficiency of other specified B group vitamins
CPT/HCPCS: 36415; 80053; 80061; 82306; 82607; 82746; 83540; 85025

== ENCOUNTER 2025-04-21 10:31 | Outpatient (AMB) | payer OTHER, SELFPAY ==
--- NOTE | 2025-04-21 10:37 | AM.OFFVISNUR ---
Intake Visit Reasons: B12 injection Allergies Influenza Virus Vaccines Allergy (Severe, Verified 03/31/25 07:41) Anaphylaxis latex (LATEX) Allergy (Severe, Verified 03/31/25 07:41) ANAPHYLAXIS Sulfa (Sulfonamide Antibiotics) (SULFA (SULFONAMIDE ANTIBIOTICS)) Allergy (Severe, Verified 03/31/25 07:41) Anaphylaxis Office Meds cyanocobalamin (vitamin B-12) 1,000 mcg/mL injection solution Performing Provider: Micheline Carmichael MD [facility] Administered by: Ayanna Agee LPN on 04/21/25 10:37 Dose Route Admin Location Dispensed Lot Number Expiration Date [facility] Nitroglycerin Nitrator Operator Batch 1,000 mcg IM left deltoid 1 mL [id number] 04/27/26 55281-932-52 [employer] Total Dispensed Waste 1 mL 0 % Assessment & Plan Assessment & Plan Orders: Orders AMB Vitamin B12 Injection Patient Supplied Today E53.8 - Deficiency of other specified B group vitamins Coding
--- OUTSIDE RECORDS SUMMARY | 2025-04-21 13:06 | XMS_ITS | Clinical Summary ---
Author Organization 175 [facility] Address [address] [place] [address] Phone Care Team Providers Care Quality Systems Manager Name Role Phone Micheline Carmichael MD Primary Care Provider [phone] Social History Tobacco Use Types Packs/Day Years [...] Health Screening 09/20/2024 COVID-19 Vaccine ( - 2024-2 6 season) 2025 Influenza Vaccine (#1) 2025 RSV [...] patient's age to complete this topic Insurance [facility] [employer] Care Teams Quality Systems Manager Relationship Specialty Start Date End Date Micheline Carmichael MD [address] [place] [address] , [address] [facility] D/B/A: [facility] [place], [place] PCP - General Internal Medicine 09/23/24
== END 2025-04-21 10:38 | disposition home or self-care (01) ==
LOC: HO.HMCH 10:31
PROVIDERS: PCP Internal Medicine; Visit Provider Internal Medicine
DX: E53.8 Deficiency of other specified B group vitamins (principal)

== ENCOUNTER → 2025-04-21 10:31 | Outpatient (BNVA) | payer OTHER, SELFPAY | PROVIDERS: PCP Internal Medicine; Visit Provider Internal Medicine | DX: E53.8 Deficiency of other specified B group vitamins (principal) | CPT/HCPCS: 96372; J3420 ==

== ENCOUNTER 2025-05-07 09:21 | Day surgery (SDC) | payer OTHER, SELFPAY ==
--- NOTE | 2025-05-05 10:56 | HO.ANESPROP2 ---
Documented by User: Betzy Garcia NP 05/05/25 11:00 HPI - Anesthesia Eval Consult details Narrative: 45 yr old female for upper endosocpy H/O Cerebral palsy, spinal cord injury from , wheelchair bound H/O iron def anemia: on oral supplementation, has required blood transfusions in past, current counts are stable. PMFSH Active Problems Active Problems: All Active Problems (Updated 04/12/25 @ 11:24 by Micheline Carmichael MD) B12 deficiency (Acute) Screening for cervical cancer (Acute) Pre-op examination (Acute) Physical exam (Acute) Anxiety (Acute) Left shoulder pain (Acute) Right shoulder pain (Acute) Paraplegic cerebral palsy (Acute) Breast calcification seen on mammogram (Acute) Incontinence (Acute) Delayed gastric emptying (Acute) Family history of pancreatic cancer (Acute) Erosive esophagitis (Acute) GERD (gastroesophageal reflux disease) (Acute) Menorrhagia (Acute) Chronic idiopathic constipation (Acute) Anemia (Acute) Epigastric pain (Acute) Tubular adenoma of colon (Acute) Gastritis (Acute) Nausea (Acute) Gallstones (Acute) Wheelchair bound (Acute) Family history of pancreatic cancer (Acute) Leg edema (Acute) Breast pain, right (Acute) Neurogenic bladder (Acute) Past Medical History Medical History Mild recurrent major depression Iron deficiency anemia Early satiety Cerebral palsy History of gallstones Paraplegic cerebral palsy Wheelchair bound Family history of pancreatic cancer Leg edema Breast pain, right Neurogenic bladder Transverse myelitis Self-catheterizes urinary bladder Family History Family History Father HTN (hypertension) Diabetes type 2, controlled Mother Pancreatic cancer Family history of problems with anesthesia: No Surgical History Surgical History H/O major orthopedic surgery Hx of endoscopy Hx of colonoscopy History of bilateral tubal ligation History of History of Problems with Anesthesia: No Social History Social History Household Members: Children Household Members Other:: minor children Housing: Apartment Are you a primary day care director to a significant other at home: No Do you presently have visiting nurse or other home services: Yes Alcohol intake: never Comment: years ago Patient Tobacco Use Status: Never used Tobacco Tobacco use type: Cigarette e-Cigarette/Vaping Use: Never Used Second Hand Smoke Exposure: No Have you been hit, kicked, punched, or otherwise hurt by someone within the past year? If so, by whom?: No Are you DNR?: No Advance Directives: No Advance Directives Information Provided: Yes Advance Directives Date on File: 02/28/20 FDLMP: 04/17/25 service: No Current occupational status: disabled Sexual orientation: Straight/Heterosexual Gender identity: Female Cognitive needs: Yes Hearing needs: No Vision needs: No Meds Allergies Allergy/AdvReac Type Severity Reaction Status Date / Time Influenza Virus Vaccines Allergy Severe Anaphylaxis Verified 05/07/25 10:26 latex (LATEX) Allergy Severe ANAPHYLAXIS Verified 05/07/25 10:26 Sulfa (Sulfonamide Allergy Severe Anaphylaxis Verified 05/07/25 10:26 Antibiotics) (SULFA (SULFONAMIDE ANTIBIOTICS)) Home Medications ?Medication ?Instructions ?Recorded ?Confirmed ?Last Taken ?Type oxybutynin chloride 10 mg 10 mg PO Q12H 03/23/20 05/05/25 Unknown History tablet,extended release 24 hr escitalopram oxalate 20 mg tablet 20 mg PO DAILY 03/19/24 05/05/25 Unknown History buspirone 10 mg tablet 10 mg PO TID 09/06/24 05/05/25 Unknown History Exam Pertinent Lab Results Pertinent Lab Results: Laboratory Tests 04/10/25 12:40 WBC 12.7 H RBC 4.80 Hgb 13.4 Hct 42.3 Plt Count 379 D Sodium 141 Potassium 3.8 BUN 15 Creatinine 0.59 Assessment and Plan Final Anesthetic Review Family History of Problems with Anesthesia: No History of Problems with Anesthesia: No Documented by User: Madelin Anderson MD 05/07/25 10:46 PMFSH Past Medical History Medical History Mild recurrent major depression Iron deficiency anemia Early satiety Cerebral palsy History of gallstones Paraplegic cerebral palsy Wheelchair bound Family history of pancreatic cancer Leg edema Breast pain, right Neurogenic bladder Transverse myelitis Self-catheterizes urinary bladder Family History Family History Father HTN (hypertension) Diabetes type 2, controlled Mother Pancreatic cancer Surgical History Surgical History H/O major orthopedic surgery Hx of endoscopy Hx of colonoscopy History of bilateral tubal ligation History of Social History Social History Household Members: Children Household Members Other:: minor children Housing: Apartment Are you a primary day care director to a significant other at home: No Do you presently have visiting nurse or other home services: Yes Alcohol intake: never Comment: years ago Patient Tobacco Use Status: Never used Tobacco Tobacco use type: Cigarette e-Cigarette/Vaping Use: Never Used Second Hand Smoke Exposure: No Have you been hit, kicked, punched, or otherwise hurt by someone within the past year? If so, by whom?: No Are you DNR?: No Advance Directives: No Advance Directives Information Provided: Yes Advance Directives Date on File: 02/28/20 FDLMP: 04/17/25 service: No Current occupational status: disabled Sexual orientation: Straight/Heterosexual Gender identity: Female Cognitive needs: Yes Hearing needs: No Vision needs: No Meds Allergies Allergy/AdvReac Type Severity Reaction Status Date / Time Influenza Virus Vaccines Allergy Severe Anaphylaxis Verified 05/07/25 10:26 latex (LATEX) Allergy Severe ANAPHYLAXIS Verified 05/07/25 10:26 Sulfa (Sulfonamide Allergy Severe Anaphylaxis Verified 05/07/25 10:26 Antibiotics) (SULFA (SULFONAMIDE ANTIBIOTICS)) Home Medications ?Medication ?Instructions ?Recorded ?Confirmed ?Last Taken ?Type oxybutynin chloride 10 mg 10 mg PO Q12H 03/23/20 05/05/25 Unknown History tablet,extended release 24 hr escitalopram oxalate 20 mg tablet 20 mg PO DAILY 03/19/24 05/05/25 Unknown History buspirone 10 mg tablet 10 mg PO TID 09/06/24 05/05/25 Unknown History Exam Airway Mallampati Class: II TM Dist: >3cm Neck ROM: Full Heart: rrr Lungs: cta Assessment and Plan Assessment Anesthesia Assessment: Anesthesia Plan Discussed and Chart Reviewed Final Anesthetic Review NPO: Yes ASA Class: III Final Preanesthetic Review: No Changes in Pt Med Stat, Meds/Allgs Chart Reviewed and Consent Obtained/Reviewed Patient Risk: Intermediate Procedure Risk: Intermediate Anesthetic Plan Anesthetic Plan: MAC: Disposition: Standard PACU
[2025-05-05 14:36] VITALS: BMI 23.0
[2025-05-07 10:16] VITALS: BMI 25.3
[2025-05-07] MEDS: Lactated Ringers 1,000 ML 100 ML IVCONT (10:23)
--- NOTE | 2025-05-07 10:30 | P.HPSUR_ITS ---
Pre-Procedural Eval Section A - 24 Hr Update-Section A only Date of Service: 05/07/25 Section B - Complete if H&P > 30 days Chief Complaint: Ulcer of esophagus w/o bleeding,epigastric pain Relevant Family History (Specify if Yes): No Relevant Social History: None Present Medications: see Short Stay Collaborative assessment Medical History: Significant History (Leg edema Abnormal mammogram Iron deficien cy anemia Early satiety Cerebral palsy History of gallstones Paraplegic cerebral palsy Paraplegic cerebral palsy COVID-19 vaccine series completed Wheelchair bound Family history of pancreatic cancer Leg edema Breast pain, right Neurogenic bladder Transverse) History of Previous Operations: Relevant previous surgery/procedure and date(s) (H/O major orthopedic surgery Hx of endoscopy Hx of colonoscopy History of bilateral tubal ligation History of ) Allergies: Allergies Allergy/AdvReac Type Severity Reaction Status Date / Time Influenza Virus Vaccines Allergy Severe Anaphylaxis Verified 05/07/25 10:26 latex (LATEX) Allergy Severe ANAPHYLAXIS Verified 05/07/25 10:26 Sulfa (Sulfonamide Allergy Severe Anaphylaxis Verified 05/07/25 10:26 Antibiotics) (SULFA (SULFONAMIDE ANTIBIOTICS)) Review of Systems Sugical H&P ROS: Negative: Constitution, Cardiovascular, Respiratory, Neurological, Psychiatric, Hem-Onc, Allergic/Immunologic, Gastrointestinal, Genitourinary, Musculoskeletal, Integumentary, Endocrine and Eyes/Ears/Nose /Throat Exam Surgical H&P Exam: Normal: HEENT, Normal: Heart, Normal: Lungs, Normal: Extremities, Normal: Abdomen, Normal: Skin and Normal: Neurological Plan Diagnosis/Plan: Unchanged I have reviewed the history and physical and performed a pertinent physical examination on my patient. No changes have occurred unless specified. Time Spent With Patient Time: Total time managing care of this patient today ____ minutes.
[2025-05-07 10:42] VITALS: BP 122/78; PULSE 96; RESP 18; TEMP 36.8; O2SAT 99
--- NOTE | 2025-05-07 11:28 | W.PM.OPN ---
Operative Note Operative Note Date of Service: 05/07/25 Narrative: Procedure Description: EGD Indication: satiety, reflux Anesthesia: MAC FLEXIBLE TRANSORAL UPPER GASTROINTESTINAL ENDOSCOPY UPPER ENDOSCOPY Consent: Indications for the procedure and potential complications of bleeding, perforation, reaction to medications and missed diagnosis were discussed with the patient and informed consent was obtained. Instrument: Olympus GIF H 190 J mid size upper endoscope Monitoring: Vital signs and clinical assessment, continuous EKG monitoring, Pulse oximetry, Carbon Dioxide monitoring and blood pressure monitoring were done throughout the procedure. Procedure: The patient was placed in the left lateral decubitis position and pre-procedure medications were administered and a bite block was placed. The endoscope was inserted into the mouth and advanced under direct vision to the third part of duodenum. A careful inspection was made as the upper endoscope was withdrawn including a retroflexed examination of the proximal stomach; Findings and interventions are described below. Findings: Larynx:normal Esophagus: GE junction at 31 cm, diaphragm hiatus at 35 cm, with schatzki ring and surrounding erythema, 4 cm fixed hiatal hernia noted - bx taken from GEJ Stomach: mild erythema . Grade 2 flap valve on retroflexed examination of the cardia. Pylorus was dilated wo 20 mm using wire guided balloon, no tears noted but resistance felt Duodenum: mild duodenitis Intervention: Biopsies as noted above, wire guided balloon dilation Impression/Findings: duodenitis hiatal hernia schatzki ring mild esophagitis PLAN: consider referral for hernia repair to Dr Emilia chowdary with PPI GERD precautions
[2025-05-07 11:36] VITALS: BP 112/75; PULSE 91; RESP 16; TEMP 36.2; O2SAT 97
[2025-05-07 11:51] VITALS: BP 110/71; PULSE 91; RESP 16; TEMP 36.1; O2SAT 97
== END 2025-05-07 12:20 | disposition home or self-care (01) ==
PROVIDERS: PCP Internal Medicine; Visit Provider Internal Medicine Gastroenterology
PROC: 0DJ08ZZ Inspection of Upper Intestinal Tract, Via Natural or Artificial Opening Endoscopic (ICD-10-PCS; CPT 43235; principal; 2025-05-07 12:10)
DX: K22.10 Ulcer of esophagus without bleeding (principal); K30 Functional dyspepsia; K59.04 Chronic idiopathic constipation; K21.00 Gastro-esophageal reflux disease with esophagitis, without bleeding; Z99.3 Dependence on wheelchair; G80.8 Other cerebral palsy; K44.9 Diaphragmatic hernia without obstruction or gangrene; K22.89 Other specified disease of esophagus; K31.89 Other diseases of stomach and duodenum; K29.80 Duodenitis without bleeding
CPT/HCPCS: 43239; 43249; 88305; 88313; C1726; J2704

== ENCOUNTER → 2025-05-07 09:21 | Outpatient (BNV) | payer OTHER, SELFPAY | PROVIDERS: PCP Internal Medicine; Visit Provider Internal Medicine Gastroenterology | DX: K21.00 Gastro-esophageal reflux disease with esophagitis, without bleeding (principal); K22.2 Esophageal obstruction; K31.1 Adult hypertrophic pyloric stenosis; K29.80 Duodenitis without bleeding | CPT/HCPCS: 43239; 43245 ==

== ENCOUNTER 2025-05-23 08:49 | Outpatient (AMB) | payer OTHER, SELFPAY ==
--- OUTSIDE RECORDS SUMMARY | 2025-05-23 08:52 | XMS_ITS | Clinical Summary ---
Author Organization [address] [facility] Address [address] [place] [address] Phone Care Team Providers Care Reactor Technician Name Role Phone Micheline Carmichael MD Primary Care Provider [phone] Social History Tobacco Use Types Packs/Day Years [...] patient's age to complete this topic Insurance [facility] Care Teams Reactor Technician Relationship Specialty Start Date End Date Micheline Carmichael MD [address] [place] [address] , [address] [facility] [place], [place] PCP - General Internal Medicine 09/23/24
--- NOTE | 2025-05-23 09:02 | AM.OFFVISNUR ---
Intake Visit Reasons: B12 Shot Allergies Influenza Virus Vaccines Allergy (Severe, Verified 05/07/25 10:26) Anaphylaxis latex (LATEX) Allergy (Severe, Verified 05/07/25 10:26) ANAPHYLAXIS Sulfa (Sulfonamide Antibiotics) (SULFA (SULFONAMIDE ANTIBIOTICS)) Allergy (Severe, Verified 05/07/25 10:26) Anaphylaxis Office Meds cyanocobalamin (vitamin B-12) 1,000 mcg/mL injection solution Performing Provider: Micheline Carmichael MD Performing Location: [facility] Administered by: Tiff Rodriguez RN on 05/23/25 09:02 Dose Route Admin Location Dispensed Lot Number Expiration Date NDC Director Of Blood 1,000 mcg IM right Deltoid 1 mL [id number] 04/27/26 35662-200-96 [employer] Total Dispensed Waste 1 mL 0 % Assessment & Plan Assessment & Plan Orders: Orders AMB Vitamin B12 Injection Patient Supplied Today E53.8 - Deficiency of other specified B group vitamins Coding
== END 2025-05-23 09:08 | disposition home or self-care (01) ==
LOC: HO.HMCH 08:50
PROVIDERS: PCP Internal Medicine; Visit Provider Internal Medicine
DX: E53.8 Deficiency of other specified B group vitamins (principal)

== ENCOUNTER → 2025-05-23 08:49 | Outpatient (BNVA) | payer OTHER, SELFPAY | PROVIDERS: PCP Internal Medicine; Visit Provider Internal Medicine | DX: E53.8 Deficiency of other specified B group vitamins (principal) | CPT/HCPCS: 96372; J3420 ==